=== PATIENT | male | born 1935 | race Caucasian/White ===

== ENCOUNTER 2016-10-12 11:25 | Inpatient (IN) | payer MEDICARE, OTHER ==
[2016-10-12 12:04] LABS: ABG Draw Site Left Radial; ALLEN'S TEST PASS; BEb 7.2 (+/- 2); TCO2 32.5 MMOL/L (23-27)
[2016-10-12 12:10] LABS: AUTOMATED BASOPHIL 0.3 % (0-2); AUTOMATED LYMPH 24.2 % (17-44); AUTOMATED MONOCYTE 11.7 % (3-10); AUTOMATED NEUTROPHIL 60.8 % (45-76); MPV 7.7 fL (7.4-10.4)
--- NOTE | 2016-10-12 12:11 | EDPRACDOC ---
<Gail Glover - Last Filed: 10/12/16 13:20> - General Information Information Source: Patient Mode Of Arrival: Ambulance - History of Present Illness Onset: THIS MORNING HPI: PT PRESENTS TODAY WITH GENERAL WEAKNESS AND SHOB THAT BEGAN UPON AWAKENING THIS MORNING. DENIES CP, ABD PAIN, N/V/D. STATES SOME PRODUCTIVE COUGH. NO APPARENT DISTRESS. EMS REPORTS SPO2 OF 87% UPON THEIR ARRIVAL. Shortness of Breath: Moderate Relevant History: Reports: Heart Failure (CHF) Cough: Reports: Productive, Green Ear Symptoms: Reports: None SOB Worsens with: Reports: Exertion, Coughing SOB Improves with: Reports: Rest Associated Signs and symptoms: Reports: Cough, Other (GENERAL WEAKNESS) <Frieda Stone - Last Filed: 10/12/16 13:22> - General Information Chief Complaint: Dyspnea/Resp distress Stated Complaint: RESP Time Seen by Provider: 10/12/16 11:57 Home Medications: Home Medications Amiodarone [Cordarone, Pacerone] 200 mg PO DAILY 12/26/14 Amlodipine [Norvasc] 10 mg PO DAILY 12/26/14 Finasteride [Proscar] 5 mg PO DAILY 12/26/14 Sennosides [Senokot] 8.6 mg PO DAILY 05/04/16 Ascorbic Acid [Vitamin C] 1,000 mg PO DAILY 08/15/16 Aspirin [Aspirin, Chewable] 81 mg PO DAILYWM #30 tablet 09/18/16 Probiotic Blend [Kellie Q] 1 tab PO BIDLS #20 tablet 09/18/16 Furosemide [Lasix] 40 mg PO DAILY 10/12/16 Ibuprofen [Motrin Ib] 600 mg PO .ONCE 10/12/16 Allergies/Adverse Reactions: Allergies Allergy/AdvReac Type Severity Reaction Status Date / Time Gzpbaml-Zwu-Cck Reductase Allergy Intermediate Unknown/See Verified 10/12/16 11: 58 Inhibitor Comments piperacillin sodium Allergy Hives* Verified 10/12/16 11:58 [From Zosyn] tazobactam sodium Allergy Hives* Verified 10/12/16 11:58 [From Zosyn] - Treatment Prior to ED Arrival Reported Medications/Treatment [place] Meds/Treatments Given O2 via Cannula EMS Treatment BLS IV No <Gail Glover - Last Filed: 10/12/16 13:20> - Treatment Prior to ED Arrival Reported Medications/Treatment [place] LINE Meds/Treatments Given O2 via Cannula EMS Treatment BLS IV No <Frieda Stone - Last Filed: 10/12/16 13:22> ED Past Medical History - History Reviewed Yes Nurses notes reviewed and agree except as marked - Patient Medical History Neurological History: Denies: Seizures, Dementia Cardiac History: Reports: Atrial Fibrillation (DC cardioversion x 2), Hypertension, Congestive Heart Failure, Hypercholesterolemia, Pacemaker ( Pacemaker Spring 2015 at [facility]), Syncope. Denies: Heart Attack, Cardiac Catheterization (DC cardioversion x 2) Respiratory History: Denies: Asthma, Pneumonia, Emphysema GI/ History: Reports: Urinary Tract Infection, Kidney Stones, BPH (URINARY RETENTION WITH CHRONIC INDWELLING MIDDLETON CATHETER). Denies: Pancreatitis Musculoskeletal History: Reports: Arthritis, Osteoarthritis Psychological History: Denies: Depression, Anxiety, Substance Use Disorder Systemic History: Reports: Anemia (iron deficiency). Denies: Cancer, Diabetes, Hyperthyroidism Surgical History: Reports: Cholecystectomy, Hernia Surgery (RIGHT GROIN), Tonsillectomy/Adnoidectomy, Other (hemorrhoidectomy). Denies: Cardiac Catheterization (DC cardioversion x 2) - Family Medical History Reports: Diabetes (father), Cancer (MOTHER- COLON CANCER), Cardiac Disorders (2 brothers atrial fib, CAD), Respiratory Disorders (brother- emphysema) - Social Medical History Smoking Status: Never smoker Social History: Denies: Substance Use Disorder <Frieda Stone - Last Filed: 10/12/16 13:22> EDM Review of Systems - Review of Systems ROS Negative Except as Marked: Yes All systems reviewed and were negative except as marked Constitutional: Fatigue, Weakness Eyes: No Symptoms Reported Ears: No Symptoms Reported Throat: No Symptoms Reported Nose: No Symptoms Reported Respiratory: Cough, Shortness of Breath Cardiovascular: No Symptoms Reported Gastrointestinal: No Symptoms Reported Neurological: No Symptoms Reported Musculoskeletal: No Symptoms Reported Integumentary: No Symptoms Reported <Frieda Stone - Last Filed: 10/12/16 13:22> - Physical Exam Last recorded Vital Signs: Last Vital Signs Temp 97.5 F 10/12/16 11:30 Pulse 66 10/12/16 13:08 Resp 16 10/12/16 13:08 BP 139/64 10/12/16 13:08 Pulse Ox 99 10/12/16 13:08 Oxygen Pulse Oxygen Saturation 99 O2 Device Nasal Cannula Oxygen Flow Rate 2 Fraction of Inspired Oxygen ( FIO2) <Gail Glover - Last Filed: 10/12/16 13:20> - Physical Exam Constitutional: Alert (Awake), No apparent distress Oriented to: Time, Person, Place Last recorded Vital Signs: Last Vital Signs Temp 97.5 F 10/12/16 11:30 Pulse 67 10/12/16 12:00 Resp 16 10/12/16 12:00 BP 157/65 10/12/16 12:00 Pulse Ox 98 10/12/16 12:00 Oxygen Pulse Oxygen Saturation 98 O2 Device Nasal Cannula Oxygen Flow Rate 2 Fraction of Inspired Oxygen ( FIO2) - HEENT Head: Normal Eye Exam: Normal Neck: Normal, Denies Pain, Midline - Respiratory/Cardiovascular Respiratory: Diminished, Rhonchi Cardiovascular: Systolic murmur - GI Palpation: Normal Tenderness: Non tender - Musculoskeletal Back: Normal Extremities: Pedal Edema (MILD, NON-PITTING) - Integumentary Skin: Normal Lymphatics: Normal - Neurologic Cerebellar: Normal Mood Description: Normal Thought: Coherent Perception: Normal <Frieda Stone - Last Filed: 10/12/16 13:22> ED SOB MDM - Results Result Diagrams: 10/12/16 11:55 10/12/16 11:55 Results: WBC 6.8 xk/uL (3.8-10.8) 10/12/16 11:55 RBC 3.42 xM/uL (4.70-6.10) L 10/12/16 11:55 Hgb 9.2 g/dL (14.0-18.0) L 10/12/16 11:55 Hct 29.1 % (42-52) L 10/12/16 11:55 MCV 85 fL (80-94) 10/12/16 11:55 MCH 27.0 pg (27-32) 10/12/16 11:55 MCHC 31.7 g/dl (33-36) L 10/12/16 11:55 RDW 16.2 % (11.5-14.5) H 10/12/16 11:55 Plt Count 251 xk/uL (130-400) 10/12/16 11:55 MPV 7.7 fL (7.4-10.4) 10/12/16 11:55 Neut % (Auto) 60.8 % (45-76) 10/12/16 11:55 Lymph % (Auto) 24.2 % (17-44) 10/12/16 11:55 [place] % (Auto) 11.7 % (3-10) H 10/12/16 11:55 Eos % (Auto) 3.0 % (0-5) 10/12/16 11:55 Baso % (Auto) 0.3 % (0-2) 10/12/16 11:55 Absolute Neuts (auto) 4.08 xk/uL (1.7-8.2) 10/12/16 11:55 Absolute Lymphs (auto) 1.63 xk/uL (0.65-4.75) 10/12/16 11:55 PT 11.5 SEC (9.2-11.2) H 10/12/16 11:55 INR 1.1 10/12/16 11:55 APTT 28.7 SEC (22-35) 10/12/16 11:55 Puncture Site Left radial 10/12/16 12:01 pH 7.490 pH UNITS (7.35-7.45) H 10/12/16 12:01 pCO2 41.0 mmHg (35-45) 10/12/16 12:01 pO2 50.0 mmHg (80-100) L 10/12/16 12:01 HCO3 31.2 MMOL/L (22-26) H 10/12/16 12:01 Total CO2 32.5 MMOL/L (23-27) H 10/12/16 12:01 Base Excess 7.2 (+/- 2) H 10/12/16 12:01 FiO2 % 21% 10/12/16 12:01 Specimen Drawn By Piksa 10/12/16 12:01 Sodium 144 mEq/L (137-146) 10/12/16 11:55 Potassium 3.1 mEq/L (3.5-5.1) L 10/12/16 11:55 Chloride 104 mEq/L (98-107) 10/12/16 11:55 Carbon Dioxide 29 mMOL/L (22-33) 10/12/16 11:55 Anion Gap 14 mEq/L (8-16) 10/12/16 11:55 BUN 13 MG/DL (9-20) 10/12/16 11:55 Creatinine 0.80 MG/DL (0.66-1.25) 10/12/16 11:55 Estimated GFR (MDRD) > 60 mL/min (>=60) 10/12/16 11:55 Glucose 93 MG/DL (70-99) 10/12/16 11:55 Calculated Osmolality 277 MOs/Kg (270-290) 10/12/16 11:55 Calcium 8.9 MG/DL (8.4-10.2) 10/12/16 11:55 Corrected Calcium 9.4 MG/DL (8.4-10.2) 10/12/16 11:55 Total Bilirubin 0.8 MG/DL (0.2-1.3) 10/12/16 11:55 AST 18 IU/L (17-59) 10/12/16 11:55 ALT 22 IU/L (21-72) 10/12/16 11:55 Alkaline Phosphatase 84 IU/L (50-160) 10/12/16 11:55 Troponin I < 0.01 ng/mL (<.04) 10/12/16 11:55 Dir-V-Oujhuayitix Pept 1990 pg/mL (0-1800) H 10/12/16 11:55 Total Protein 6.9 G/DL (6.3-8.2) 10/12/16 11:55 Albumin 3.5 G/DL (3.5-5.0) 10/12/16 11:55 Urine Color Pale yell0w 10/12/16 12:10 Urine Clarity Hazy 10/12/16 12:10 Urine pH 8.0 (5.0-8.0) 10/12/16 12:10 Ur Specific [place] 1.005 (1.003-1.035) 10/12/16 12:10 Urine Protein 1+ (NEG/TRACE) H 10/12/16 12:10 Urine Glucose (UA) Neg (NEGATIVE) 10/12/16 12:10 Urine Ketones Neg (NEGATIVE) 10/12/16 12:10 Urine Occult Blood 1+ (NEG/TRACE) H 10/12/16 12:10 Urine Nitrite Neg (NEGATIVE) 10/12/16 12:10 Urine Bilirubin Neg (NEGATIVE) 10/12/16 12:10 Urine Urobilinogen <2.0 MG/DL (0-1) 10/12/16 12:10 Ur Leukocyte Esterase 2+ (NEGATIVE) H 10/12/16 12:10 Urine RBC 20-30 (0-2) H 10/12/16 12:10 Urine WBC Tntc (0-2) H 10/12/16 12:10 Urine WBC Clumps Present (NONE) H 10/12/16 12:10 Ur Epithelial Cells Occ 10/12/16 12:10 Urine Bacteria 1+ (NEG/FEW) H 10/12/16 12:10 Hyaline Casts 2-5 (0-2) H 10/12/16 12:10 Urine Mucus Sm amt (NEG/OCC) 10/12/16 12:10 Urine Yeast Few (NONE) H 10/12/16 12:10 Lab Results 10/12/16 10/12/16 10/12/16 12:10 12:01 11:55 WBC RBC Hgb Hct MCV MCH MCHC RDW Plt Count MPV Neut % (Auto) Lymph % (Auto) [place] % (Auto) Eos % (Auto) Baso % (Auto) Absolute Neuts (auto) Absolute Lymphs (auto) PT 11.5 H INR 1.1 APTT 28.7 Puncture Site Left radial pH 7.490 H pCO2 41.0 pO2 50.0 L HCO3 31.2 H Total CO2 32.5 H Base Excess 7.2 H FiO2 % 21% Specimen Drawn By Piksa Sodium Potassium Chloride Carbon Dioxide Anion Gap BUN Creatinine Estimated GFR (MDRD) Glucose Calculated Osmolality Calcium Corrected Calcium Total Bilirubin AST ALT Alkaline Phosphatase Troponin I Mit-Z-Mmfnkxljyet Pept Total Protein Albumin Urine Color Pale yell0w Urine Clarity Hazy Urine pH 8.0 Ur Specific [place] 1.005 Urine Protein 1+ H Urine Glucose (UA) Neg Urine Ketones Neg Urine Occult Blood 1+ H Urine Nitrite Neg Urine Bilirubin Neg Urine Urobilinogen <2.0 Ur Leukocyte Esterase 2+ H Urine RBC 20-30 H Urine WBC Tntc H Urine WBC Clumps Present H Ur Epithelial Cells Occ Urine Bacteria 1+ H Hyaline Casts 2-5 H Urine Mucus Sm amt Urine Yeast Few H 10/12/16 10/12/16 11:55 11:55 WBC 6.8 RBC 3.42 L Hgb 9.2 L Hct 29.1 L MCV 85 MCH 27.0 MCHC 31.7 L RDW 16.2 H Plt Count 251 MPV 7.7 Neut % (Auto) 60.8 Lymph % (Auto) 24.2 [place] % (Auto) 11.7 H Eos % (Auto) 3.0 Baso % (Auto) 0.3 Absolute Neuts (auto) 4.08 Absolute Lymphs (auto) 1.63 PT INR APTT Puncture Site pH pCO2 pO2 HCO3 Total CO2 Base Excess FiO2 % Specimen Drawn By Sodium 144 Potassium 3.1 L Chloride 104 Carbon Dioxide 29 Anion Gap 14 BUN 13 Creatinine 0.80 Estimated GFR (MDRD) > 60 Glucose 93 Calculated Osmolality 277 Calcium 8.9 Corrected Calcium 9.4 Total Bilirubin 0.8 AST 18 ALT 22 Alkaline Phosphatase 84 Troponin I < 0.01 Skr-N-Aawcnjoseqs Pept 1990 H Total Protein 6.9 Albumin 3.5 Urine Color Urine Clarity Urine pH Ur Specific [place] Urine Protein Urine Glucose (UA) Urine Ketones Urine Occult Blood Urine Nitrite Urine Bilirubin Urine Urobilinogen Ur Leukocyte Esterase Urine RBC Urine WBC Urine WBC Clumps Ur Epithelial Cells Urine Bacteria Hyaline Casts Urine Mucus Urine Yeast - Diagnostic Imaging Chest Image interpreted by: Radiologist Diagnostic Imaging Comments: Large left midlung opacity is noted consistent with pneumonia. Follow-up radiographs are recommended to ensure resolution. <Gail Glover - Last Filed: 10/12/16 13:20> - Results Result Diagrams: 10/12/16 11:55 10/12/16 11:55 Results: Puncture Site Left radial 10/12/16 12:01 pH 7.490 pH UNITS (7.35-7.45) H 10/12/16 12:01 pCO2 41.0 mmHg (35-45) 10/12/16 12:01 pO2 50.0 mmHg (80-100) L 10/12/16 12:01 HCO3 31.2 MMOL/L (22-26) H 10/12/16 12:01 Total CO2 32.5 MMOL/L (23-27) H 10/12/16 12:01 Base Excess 7.2 (+/- 2) H 10/12/16 12:01 FiO2 % 21% 10/12/16 12:01 Specimen Drawn By Piksa 10/12/16 12:01 Lab Results 10/12/16 12:01 Puncture Site Left radial pH 7.490 H pCO2 41.0 pO2 50.0 L HCO3 31.2 H Total CO2 32.5 H Base Excess 7.2 H FiO2 % 21% Specimen Drawn By Piksa - EKG EKG #1 EKG Time: 11:39 -: Yes EKG interpreted by me Rate: bpm: 68 Rhythm: Paced <Frieda Stone - Last Filed: 10/12/16 13:22> - Departure Yes I personally saw and evaluated the patient. Disposition: Admit IP To This Hospital Education/Counseling Given To: Patient, Family Member Education/Counseling Given Regarding: Diagnosis, Treatment Decision to Admit Time: 13:21 Decision to admit date: 10/12/16 Decision to admit: from ED - Physician Consulted Hospitalist Provider Called: Wagner Quiñones <Gail Glover - Last Filed: 10/12/16 13:20> - Departure Disposition: Admit IP To This Hospital <Frieda Stone - Last Filed: 10/12/16 13:22> - Departure Condition: Serious Final Diagnosis: Acute respiratory failure with hypoxia, LARGE LEFT MIDLUNG PNEUMONIA, UTI ( urinary tract infection), Chronic indwelling [place] catheter Instructions: Urinary Tract Infection in Men (ED), Dysuria Referrals: Earl Fitch II, MD [Primary Care Provider] - One Week
[2016-10-12 12:24] LABS: PARTIAL THROMB. TIME 28.7 SEC (22-35); PT-INR 1.1
[2016-10-12 12:28] LABS: LEUKOCYTES/URINE 2+ (NEGATIVE); NITRITE/URINE NEG (NEGATIVE); RBC/URINE 20-30 (0-2); URINE OCCULT BLOOD 1+ (NEG/TRACE); WBC/URINE TNTC (0-2)
[2016-10-12 12:29] LABS: BLOOD UREA NITROGEN 13 MG/DL (9-20); CALC CORRECTED 9.4 MG/DL (8.4-10.2); CALCIUM 8.9 MG/DL (8.4-10.2); CALCULATED OSMOLALITY 277 MOs/Kg (270-290); CHLORIDE 104 mEq/L (98-107); GLUCOSE 93 MG/DL (70-99); SODIUM LEVEL 144 mEq/L (137-146); TOTAL PROTEIN 6.9 G/DL (6.3-8.2)
[2016-10-12] MEDS ORDERED: Levofloxacin 750 mg/150 ml D5W 750 MG/150 ML RTU IV ONE (13:02)
--- NOTE | 2016-10-12 13:16 | DIRPT ---
CLINICAL DATA: Shortness of breath. EXAM: PORTABLE CHEST 1 VIEW COMPARISON: September 15, 2016. FINDINGS: Stable cardiomediastinal silhouette. Hypoinflation of the lungs is again noted with elevated right hemidiaphragm. Left-sided pacemaker is unchanged in position. Large airspace opacity is noted in the left midlung consistent with pneumonia. Right lung is clear. Bony thorax is unremarkable. IMPRESSION: Large left midlung opacity is noted consistent with pneumonia. Follow-up radiographs are recommended to ensure resolution. Electronically Signed By: Uriah Connelly Jr, M.D. On: 10/12/2016 13:13
[2016-10-12] MEDS ORDERED: NS 1,000 ML IV ONE (13:18)
--- NOTE | 2016-10-12 14:01 | HISTPHYS ---
- Chief Complaint Shortness of breath and weakness - History of Present Illness PT PRESENTS TODAY WITH GENERAL WEAKNESS AND SHOB THAT BEGAN UPON AWAKENING THIS MORNING. DENIES CP, ABD PAIN, N/V/D. STATES SOME PRODUCTIVE COUGH. NO APPARENT DISTRESS. EMS REPORTS SPO2 OF 87% UPON THEIR ARRIVAL. Shortness of Breath: Moderate Relevant History: Reports: Heart Failure (CHF) Cough: Reports: Productive, Green Ear Symptoms: Reports: None SOB Worsens with: Reports: Exertion, Coughing SOB Improves with: Reports: Rest Associated Signs and symptoms: Reports: Cough, Other (GENERAL WEAKNESS) - Medical History Cardiac History: Reports: Atrial Fibrillation (DC cardioversion x 2), Hypertension, Congestive Heart Failure, Hypercholesterolemia, Pacemaker ( Pacemaker Spring 2015 at [facility]), Syncope. Denies: Heart Attack, Cardiac Catheterization (DC cardioversion x 2) Respiratory History: Denies: Asthma, Pneumonia, Emphysema GI/ History: Reports: Urinary Tract Infection, Kidney Stones, BPH (URINARY RETENTION WITH CHRONIC INDWELLING MIDDLETON CATHETER). Denies: Pancreatitis Musculoskeletal History: Reports: Arthritis, Osteoarthritis Systemic History: Reports: Anemia (iron deficiency). Denies: Cancer, Diabetes, Hyperthyroidism Neurological History: Denies: Seizures, Dementia Psychological History: Denies: Depression, Anxiety, Substance Use Disorder - Surgical History Reports: Cholecystectomy, Hernia Surgery (RIGHT GROIN), Tonsillectomy/ Adnoidectomy, Other (hemorrhoidectomy). Denies: Cardiac Catheterization (DC cardioversion x 2) - Medictions/Allergies Allergies Zpdjgpz-Yxw-Fzv Reductase Inhibitor Allergy (Intermediate, Verified 10/12/16 11: 58) Unknown/See Comments LEGS HURT piperacillin sodium [From Zosyn] Allergy (Verified 10/12/16 11:58) Hives* tazobactam sodium [From Zosyn] Allergy (Verified 10/12/16 11:58) Hives* Home Medications Amiodarone [Cordarone, Pacerone] 200 mg PO DAILY 12/26/14 Amlodipine [Norvasc] 10 mg PO DAILY 12/26/14 Finasteride [Proscar] 5 mg PO DAILY 12/26/14 Sennosides [Senokot] 8.6 mg PO DAILY 05/04/16 Ascorbic Acid [Vitamin C] 1,000 mg PO DAILY 08/15/16 Aspirin [Aspirin, Chewable] 81 mg PO DAILYWM #30 tablet 09/18/16 Probiotic Blend [Kellie Q] 1 tab PO BIDLS #20 tablet 09/18/16 Furosemide [Lasix] 40 mg PO DAILY 10/12/16 Ibuprofen [Motrin Ib] 600 mg PO .ONCE 10/12/16 - Family History Reports: Diabetes (father), Cancer (MOTHER- COLON CANCER), Cardiac Disorders (2 brothers atrial fib, CAD), Respiratory Disorders (brother- emphysema) - Social History Smoking Status: Never smoker Social History: Denies: Alcohol Use, Substance Use Disorder - Review of Systems Constitutional: Fatigue, Weakness - Eyes No Symptoms Reported (No blurry vision, visual changes, eye pain, or eye redness.) - Ears No Symptoms Reported (No ear pain or discharge) - Nose No Symptoms Reported (No nasal discharge/congestion or bleeding) - Mouth Mouth: No Symptoms Reported (No oropharyngeal lesions or erythema) - Throat/Neck No Symptoms Reported (No throat pain or swelling.No oropharyngeal lesions or erythema.) - Respiratory No Symptoms Reported (No cough, wheezing, or shortness of breath.) - Cardiovascular No Symptoms Reported (No chest pain or palpitations.) - Neurological No Symptoms Reported (No headache, dizziness, seizures, or focal weakness.) - Integumentary No Symptoms Reported (no rashes or lesions) - Allergic/Immunologic No Symptoms Reported (no rashes or lesions) - Hematologic No Symptoms Reported (No chronic anemia, bleeding, or easy bruising.) - Endocrine No Symptoms Reported (No thyroid issues, polyuria, or polydipsia.) - Psychiatric No Symptoms Reported (Fully oriented, with normal and appropriate affect.) - Physical Exam Constitutional: Alert (Awake), No apparent distress Oriented to: Time, Person, Place Exam: Last Vital Signs Temp 97.5 F 10/12/16 11:30 Pulse 66 10/12/16 13:08 Resp 16 10/12/16 13:08 BP 139/64 10/12/16 13:08 Pulse Ox 99 10/12/16 13:08 Intake & Output 10/11/16 10/12/16 10/12/16 23:59 07:59 15:59 Patient's weight 162 lb - HEENT Head: Normal Eye: Normal Oropharynx: Normal (Pharynx: Moist without exudate,Gums-no swelling, No oropharyngeal lesions or erythema, Mucous membranes are dry.) Tympanic Membrane: Normal (No discharge) ENT EAC: Normal (No oropharyngeal lesions or erythema. Mucous membranes are dry. ) TMJ: Normal Nose: No Symptoms Reported - Respiratory/Cardiovascular Respiratory: Diminished, Rhonchi Cardiovascular: Normal (RRR , Normal S1, S2. No murmurs, rubs, or gallops. PMI non-displaced. Carotids: no carotid bruits. No bradycardia or tachycardia. DP pulses 2+ bilaterally.) - GI Auscultation: Normal (NABS) Palpation: Normal Tenderness: Non tender Bliss's Sign: Negative - Musculoskeletal Back: Normal Extremities: Pedal Edema (MILD, NON-PITTING) - Integumentary Skin: Normal Lymphatics: Normal - Neurologic Memory Impaired: Normal Motor Function: Normal (Motor 5/5 throughout. Normal tone, Pulses 2+ No cyanosis or edema, FROM) Cranial Nerve: Normal (CN II-XXII intact sensation, strength 5/5) Cerebellar: Normal Mood Description: Normal Thought: Coherent Perception: Normal - Focused CV Perfusion Exam Vital Signs: Last Vital Signs Temp 97.5 F 10/12/16 11:30 Pulse 66 10/12/16 13:08 Resp 16 10/12/16 13:08 BP 139/64 10/12/16 13:08 Pulse Ox 99 10/12/16 13:08 - Lab Results 10/12/16 11:55 10/12/16 11:55 Laboratory Tests 10/12/16 11:55 Troponin I < 0.01 Kqh-T-Bvrfjnjkdjg Pept 1990 H Laboratory Tests 10/12/16 12:10 Urine Nitrite Neg Ur Leukocyte Esterase 2+ H Urine RBC 20-30 H Urine WBC Tntc H Urine WBC Clumps Present H Laboratory Tests 09/15/16 09/16/16 10/12/16 21:25 04:35 11:55 RBC 3.81 L Hgb 9.1 L D 9.2 L Laboratory Tests 02/25/14 05/04/16 10/12/16 20:35 18:00 12:01 pH 7.430 7.440 7.490 H pCO2 40.0 35.0 41.0 pO2 69.0 L 50.0 L 50.0 L HCO3 26.5 H 23.8 31.2 H Total CO2 27.7 H 24.9 32.5 H Base Excess 2.0 0.1 7.2 H FiO2 % 21% Laboratory Tests 09/15/16 09/16/16 10/12/16 21:25 04:35 11:55 Potassium 5.3 H 4.7 3.1 L Creatinine 2.20 H 1.90 H 0.80 PORTABLE CHEST 1 VIEW COMPARISON: September 15, 2016. FINDINGS: Stable cardiomediastinal silhouette. Hypoinflation of the lungs is again noted with elevated right hemidiaphragm. Left-sided pacemaker is unchanged in position. Large airspace opacity is noted in the left midlung consistent with pneumonia. Right lung is clear. Bony thorax is unremarkable. IMPRESSION: Large left midlung opacity is noted consistent with pneumonia. Follow-up radiographs are recommended to ensure resolution. - Assessment (1) Acute respiratory failure with hypoxia J96.01 - ACUTE RESPIRATORY FAILURE WITH HYPOXIA Acute (2) Left upper lobe pneumonia J18.1 - LOBAR PNEUMONIA, UNSPECIFIED ORGANISM Acute (3) Hypokalemia E87.6 - HYPOKALEMIA Acute (4) PAF (paroxysmal atrial fibrillation) I48.0 - PAROXYSMAL ATRIAL FIBRILLATION Chronic Present on Admission: No (5) HTN (hypertension) I10 - ESSENTIAL (PRIMARY) HYPERTENSION Acute Qualifiers: Hypertension type: essential hypertension Qualified Code(s): I10 - Essential (primary) hypertension
[2016-10-12] MEDS ORDERED: PROMETHAZINE 25 MG/ML VIAL IV PRN (14:20)
[2016-10-12] MEDS ORDERED: TUSSIONEX 5 ML ORAL SYRINGE PO PRN (14:20)
[2016-10-12] MEDS ORDERED: BISACODYL 10 MG SUPP PR PRN (14:20)
[2016-10-12] MEDS ORDERED: ONDANSETRON HCL 4 MG/2 ML VIAL IV PRN (14:20)
[2016-10-12] MEDS ORDERED: GUAIFEN 100 MG-DEXTROMETH 10 MG PER 5 ML PO PRN (14:20)
[2016-10-12] MEDS ORDERED: MAGNESIUM HYDROXIDE 30 ML BOTTLE PO PRN (14:20)
[2016-10-12] MEDS ORDERED: ACETAMINOPHEN 650 MG SUPP PR PRN (14:20)
[2016-10-12] MEDS ORDERED: Aluminum;Magnesium;Simethicone 30 ML UDC PO PRN (14:20)
[2016-10-12] MEDS ORDERED: SODIUM CHLORIDE 0.9% 3 ML FLUSH FLUSH PRN (14:22)
[2016-10-12] MEDS ORDERED: Vaccine Screening Complete SCH (16:00)
[2016-10-12] MEDS: IMIPENEM CILASTATIN 500 MG in D5W 100 ML IV SCH (17:14)
[2016-10-12] MEDS: NS/KCl 20 mEq 1,000 ML IV SCH (17:14)
[2016-10-12] MEDS: ENOXAPARIN 40 MG/0.4 ML PFS SQ SCH (18:02)
[2016-10-12] MEDS: SODIUM CHLORIDE 0.9% 3 ML FLUSH FLUSH SCH (18:02)
[2016-10-12] MEDS: PROBIOTIC BLEND TAB PO SCH (18:02)
[2016-10-12] MEDS: TEMAZEPAM 15 MG CAP PO PRN (23:02)
[2016-10-13] MEDS: IMIPENEM CILASTATIN 500 MG in D5W 100 ML IV SCH ×2 (01:09→08:31)
[2016-10-13] MEDS: SODIUM CHLORIDE 0.9% 3 ML FLUSH FLUSH SCH ×2 (01:41→18:17)
[2016-10-13 03:24] LABS: MPV 8.7 fL (7.4-10.4)
[2016-10-13 03:36] LABS: BLOOD UREA NITROGEN 11 MG/DL (9-20); CALCIUM 8.4 MG/DL (8.4-10.2); CALCULATED OSMOLALITY 271 MOs/Kg (270-290); CHLORIDE 103 mEq/L (98-107); GLUCOSE 84 MG/DL (70-99); SODIUM LEVEL 142 mEq/L (137-146)
[2016-10-13 04:59] VITALS: BMI 22.4
[2016-10-13] MEDS: NS/KCl 20 mEq 1,000 ML IV SCH ×2 (05:02→15:41)
[2016-10-13] MEDS: POTASSIUM CHLORIDE 20 MEQ TAB PO SCH ×4 (05:06→11:48)
[2016-10-13] MEDS: ALBUTEROL 0.083% 3 ML NEB NEB PRN ×2 (05:10→21:19)
[2016-10-13] MEDS ORDERED: Magnesium Sulfate 2 gm/D5W 2 GM/50 ML RTU IV ONE (06:00)
[2016-10-13] MEDS: ASPIRIN (CHEWABLE) 81 MG TAB PO SCH (08:32)
[2016-10-13] MEDS: SENNA CONCENTRATE TAB PO SCH (08:33)
[2016-10-13] MEDS: AMLODIPINE 10 MG TAB PO SCH (08:33)
[2016-10-13] MEDS: FINASTERIDE 5 MG TAB PO SCH (08:33)
[2016-10-13] MEDS: AMIODARONE 200 MG TAB PO SCH (08:33)
[2016-10-13] MEDS: FUROSEMIDE 40 MG TAB PO SCH (08:33)
[2016-10-13] MEDS ORDERED: Non-Formulary Medication ITEM (Ascorbic Acid [Vitamin C] 1,000 MG) PO SCH (09:00)
[2016-10-13] MEDS ORDERED: POTASSIUM CHLORIDE 20 MEQ TAB PO ONE (09:54)
[2016-10-13] MEDS: KCl 10 mEq/100 ml Premix (Run) 10 MEQ/100 ML RTU IV SCH (11:48)
[2016-10-13] MEDS: ASCORBIC ACID 500 MG TAB PO SCH (11:49)
[2016-10-13] MEDS: PROBIOTIC BLEND TAB PO SCH ×2 (11:49→18:08)
[2016-10-13] MEDS ORDERED: LIDOCAINE 1% 5 ML (METHYLPARABEN FREE) ONE (12:39)
--- NOTE | 2016-10-13 13:48 | HIMOPRPT ---
DATE OF PROCEDURE: 10/13/16 PREOPERATIVE DIAGNOSES: Sepsis, and poor venous access. POSTPROCEDURE DIAGNOSES: Sepsis, and poor venous access. PROCEDURE: Placement of right internal jugular vein, triple-lumen catheter with ultrasound guidance. SURGEON: Shen Feldman MD. MANAGER FINANCIAL SYSTEMS: None. ANESTHESIA: 1% lidocaine. ESTIMATED BLOOD LOSS: Minimal. COMPLICATIONS: None noted. INDICATIONS: JAMIE LARSON is a 81-year-old M patient, who had become hypotensive, was in need of emergent IV access. We have been asked to obtain this. Consent had been obtained. We did this at the bedside. The risks and benefits including the risk of infection, bleeding, anesthesia, as well as the unforeseen complications, and risk of pneumothorax and hemothorax have been explained. The patient understood and agreed. PROCEDURE IN DETAIL: The patient was identified as such after appropriate time- out, and sterile prep and drape, the right neck was anesthetized with 1% lidocaine and then under ultrasound guidance, a large bore needle was placed in internal jugular vein. Good blood return was obtained. Guidewire was placed. Needle was removed. Over the guidewire, dilator and triple-lumen catheter placed without any problems. This sutured in position. All ports were flushed and withdrawn. Dry sterile dressing was applied. The patient tolerated this without any difficulties.
--- NOTE | 2016-10-13 13:51 | PCM.SURGCO ---
Consultation Date: 10/13/16 Requesting Physician: David Catherine Multimedia Educational Specialist: Shen Feldman Consult Reason: Poor Venous Access - History of Present Illness The patient is a very unfortunate 81-year-old with shortness of breath and pneumonia. He had hypokalemia and needed IV access for potassium supplementation and IV antibiotics as his IV access was very poor. We have been asked to obtain this. Chief Complaint: Shortness of breath and weakness - Past Medical and Surgical History Cardiac History: Reports: Atrial Fibrillation, Hypertension, Congestive Heart Failure, Heart Attack, Cardiac Catheterization, Pacemaker Respiratory History: Denies: Asthma, COPD GI/ History: Reports: Urinary Tract Infection, Kidney Stones, BPH Systemic History: Reports: Anemia. Denies: Diabetes Musculoskeletal History: Reports: Arthritis, Osteoarthritis Psychological History: Reports: No Significant History. Denies: Depression, Anxiety, Substance Use Disorder Neurological History: Reports: No Significant History. Denies: Cerebrovascular Accident, Seizures Past Surgical History: Reports: Cholecystectomy, Cardiac Catheterization, Hernia Surgery, Tonsillectomy/Adnoidectomy Allergies Zmsxila-Pre-Vqv Reductase Inhibitor Allergy (Intermediate, Verified 10/12/16 15: 48) Unknown/See Comments LEGS HURT piperacillin sodium [From Zosyn] Allergy (Verified 10/12/16 15:48) Hives* tazobactam sodium [From Zosyn] Allergy (Verified 10/12/16 15:48) Hives* Home Medications Amiodarone [Cordarone, Pacerone] 200 mg PO DAILY 12/26/14 Amlodipine [Norvasc] 10 mg PO DAILY 12/26/14 Finasteride [Proscar] 5 mg PO DAILY 12/26/14 Sennosides [Senokot] 8.6 mg PO DAILY 05/04/16 Ascorbic Acid [Vitamin C] 1,000 mg PO DAILY 08/15/16 Aspirin [Aspirin, Chewable] 81 mg PO DAILYWM #30 tablet 09/18/16 Probiotic Blend [Kellie Q] 1 tab PO BIDLS #20 tablet 09/18/16 Furosemide [Lasix] 40 mg PO DAILY 10/12/16 Ibuprofen [Motrin Ib] 600 mg PO .ONCE 10/12/16 - Social History Travel Outside of [place] in the Last 3 Months?: No Smoking Status: Never smoker Social History: Denies: Alcohol Use, Substance Use Disorder - Family History Reports: Diabetes (father), Cancer (MOTHER- COLON CANCER), Cardiac Disorders (2 brothers atrial fib, CAD) - Review of Systems Constitutional: Fatigue, Weakness. negative: Chills, Fever Eyes: No Symptoms Reported. negative: Blurred Vision, Double Vision Ears: No Symptoms Reported. negative: Drainage, Hearing Loss Nose: No Symptoms Reported. negative: Abrasion, Bleeding Mouth: No Symptoms Reported. negative: Pain, Dry Mouth Throat/Neck: No Symptoms Reported. negative: Pain, Hoarseness Respiratory: Shortness of Breath Cardiovascular: negative: Chest Pain Gastrointestinal: negative: Nausea, Vomiting, Abdominal Pain Genitourinary: Frequency, Urgency to urinate Neurological: No Symptoms Reported. negative: Dizziness, Seizure Musculoskeletal:: Osteoarthritis Integumentary: Bruising. negative: Rash Allergic/Immunologic: No Symptoms Reported. negative: Hives, Itching Hematologic: Easy Bruising. negative: Lymphadenopathy Endocrine: negative: Diabetes Psychiatric: No Symptoms Reported. negative: Anxiety, Depression - Physical Exam Vital Signs: Initial Vitals Temperature 97.5 F 10/12/16 11:30 Pulse Rate 70 10/12/16 11:30 Respiratory Rate 16 10/12/16 11:30 Blood Pressure 145/67 10/12/16 11:30 Pulse Oxygen Saturation 90 L 10/12/16 11:30 Constitutional: No apparent distress, Alert Oriented to: Time, Person, Place - HEENT Head: Normal. negative: Laceration, Tender Eye: Normal. negative: Edema, Scleral Icterus Oropharynx: Normal. negative: Membranes Dry, Red ENT EAC: Normal. negative: Blood TMJ: Normal. negative: Crepitance, Tender Nose: No Symptoms Reported. negative: Abrasion, Bleeding Respiratory: Diminished, Rhonchi Cardiovascular: Irregular. negative: Bradycardia, Tachycardia - GI Auscultation: Normal. negative: Bruit Palpation: Normal. negative: Enlarged liver, Enlarged spleen Tenderness: Non tender Bliss's Sign: Negative Rectal Exam: Deferred - Exam Deferred: Yes - Musculoskeletal Back: Normal. negative: Abrasion, CVA Tenderness Extremities: negative: Calf Tenderness, Clubbing, Cyanosis Spine: non-tender, full range of motion, normal alignment - Integumentary Skin: Normal. negative: Clammy, Diaphoretic Lymphatics: Normal. negative: Adenopathy, Tender - Neurologic Memory Impaired: Normal Motor Function: Abnormal (Significant weakness but no focal deficit.) Cranial Nerve: Normal Mood Description: Normal, Appropriate Thought: negative: Coherent, Delusions Perception: Normal - Lab Results 10/13/16 02:50 10/13/16 02:50 - Assessment/Plan (1) Poor venous access I87.8 - OTHER SPECIFIED DISORDERS OF VEINS Acute Comment: Will place central line. I have explained this to him in detail and he understands and agrees. (2) Pneumonia J18.9 - PNEUMONIA, UNSPECIFIED ORGANISM Acute Comment: Being treated with antibiotics. (3) Sepsis A41.9 - SEPSIS, UNSPECIFIED ORGANISM Resolved Comment: On antibiotics.
[2016-10-13] MEDS: ENOXAPARIN 40 MG/0.4 ML PFS SQ SCH (18:05)
[2016-10-13] MEDS: CEFEPIME HYDROCHLORIDE 2 GM in D5W 100 ML IV SCH (18:16)
[2016-10-13] MEDS ORDERED: HYDROCORTISONE 2.5% CREAM TOP PRN (18:31)
--- NOTE | 2016-10-13 20:38 | GENMEDPROG ---
Notes Reviewed: Yes Events from last night noted and discussed with Clinical Staff Current Medication List: Reviewed Currently: Reports: Cough, ASHER DVT Prophylaxis: Yes - Physical Examination Vital Signs and I&O: Last Vital Signs Temp 97.9 F 10/13/16 19:51 Pulse 64 10/13/16 19:51 Resp 18 10/13/16 19:51 BP 104/48 L 10/13/16 19:51 Pulse Ox 95 10/13/16 19:51 Oxygen Pulse Oxygen Saturation 95 O2 Device Nasal Cannula Oxygen Flow Rate 3 Fraction of Inspired Oxygen ( FIO2) Intake & Output 10/10/16 10/11/16 10/12/16 10/13/16 23:59 23:59 23:59 23:59 Intake Total 2089 2246 Output Total 100 2100 Balance 1988 146 Patient's weight 164 lb 169 lb General: Alert, Oriented x3, No acute distress, Well appearing, Well nourished HEENT: Normal (Normocephalic, atraumatic;EOMI.Sclera white, Nares patent, without discharge or bleeding. No oropharyngeal lesions or erythema. Mucous membranes are dry.) Neck: Non-tender, Full range of motion, Normal Trachea alignment, Normal inspection (No cervical lymphadenopathy. No supraclavicular lymphadenopathy.), No Masses palpable, Supple Lymphatics: Normal Respiratory: Diminished, Rhonchi Cardiovascular: Regular rate and rhythm (No bradycardia or tachycardia), Normal S1, No Gallops,Rubs/Murmurs, Normal S2, Good Pedal Pulses (DP pulses 2+ bilaterally) GI: Normal bowel sounds (normal active sounds), Soft (non-distended), Non tender , No hepatospenomegaly, No masses Extremities/Musculoskeletal: Normal pulses (DP pulses 2+ bilaterally) Skin: Warm,Dry and Intact, No rashes, No significant lesion Neurological: Strength at 5/5 X4 ext (Motor 5/5 throughout.), Normal tone, Cranial nerves 3-12 NL ( 2-12 grossly intact.) Psych/Mental Status: Appropriate, Normal Affect Lab/DI/Studies Reviewed: Laboratory Results - last 24 hr 10/13/16 10/13/16 10/13/16 02:50 02:50 03:57 WBC 6.1 RBC 3.06 L Hgb 8.3 L Hct 26.0 L MCV 85 MCH 27.3 MCHC 32.1 L RDW 16.0 H Plt Count 212 MPV 8.7 Sodium 142 Potassium 2.8 L Chloride 103 Carbon Dioxide 31 Anion Gap 11 BUN 11 Creatinine 0.70 Estimated GFR (MDRD) > 60 Glucose 84 Calculated Osmolality 271 Calcium 8.4 Magnesium 1.90 10/13/16 10/13/16 10:07 15:40 WBC RBC Hgb Hct MCV MCH MCHC RDW Plt Count MPV Sodium Potassium 4.7 D Chloride Carbon Dioxide Anion Gap BUN Creatinine Estimated GFR (MDRD) Glucose Calculated Osmolality Calcium Magnesium 2.20 - Assessment (1) Acute respiratory failure with hypoxia Acute J96.01 - ACUTE RESPIRATORY FAILURE WITH HYPOXIA (2) Left upper lobe pneumonia Acute J18.1 - LOBAR PNEUMONIA, UNSPECIFIED ORGANISM (3) Hypokalemia Acute E87.6 - HYPOKALEMIA (4) PAF (paroxysmal atrial fibrillation) Chronic I48.0 - PAROXYSMAL ATRIAL FIBRILLATION (5) HTN (hypertension) Acute I10 - ESSENTIAL (PRIMARY) HYPERTENSION Qualifiers: Hypertension type: essential hypertension Qualified Code(s): I10 - Essential (primary) hypertension
[2016-10-14] MEDS: CEFEPIME HYDROCHLORIDE 2 GM in D5W 100 ML IV SCH ×2 (03:45→14:55)
[2016-10-14] MEDS: NS/KCl 20 mEq 1,000 ML IV SCH ×2 (05:19→08:27)
[2016-10-14] MEDS: SODIUM CHLORIDE 0.9% 3 ML FLUSH FLUSH SCH ×2 (05:19→18:43)
[2016-10-14 08:12] LABS: MPV 8.6 fL (7.4-10.4)
--- NOTE | 2016-10-14 08:12 | DIRPT ---
CLINICAL DATA: 81-year-old male with difficulty breathing. Subsequent encounter. EXAM: PORTABLE CHEST 1 VIEW COMPARISON: 10/12/2016. FINDINGS: Portable exam with poor inspiration. Sequential pacemaker enters from the left with leads unchanged in position. Heart size within normal limits. Placement of right central line with the tip projecting at the level of the proximal superior vena cava. No gross pneumothorax. Left perihilar/ lower lobe consolidation similar to prior exam and may represent infectious infiltrate. Mild progression of consolidation right infrahilar region may represent infiltrate and/ or atelectasis. Follow-up and clearance recommended. Small right-sided pleural effusion may be present. Pulmonary vascular congestion most notable centrally. IMPRESSION: Since the prior examination, right central line has been placed with the tip projected at the level the proximal superior vena cava without evidence gross pneumothorax. Asymmetric airspace disease left greater than right. When compared to prior examination, the right infrahilar consolidation has progressed. This may represent presence of infectious infiltrates superimposed upon pulmonary vascular congestion. Electronically Signed By: Tyrone Li M.D. On: 10/14/2016 08:10
[2016-10-14 08:13] LABS: BLOOD UREA NITROGEN 11 MG/DL (9-20); CALCIUM 8.8 MG/DL (8.4-10.2); CALCULATED OSMOLALITY 272 MOs/Kg (270-290); CHLORIDE 108 mEq/L (98-107); GLUCOSE 95 MG/DL (70-99); SODIUM LEVEL 142 mEq/L (137-146)
[2016-10-14] MEDS: ALBUTEROL 0.083% 3 ML NEB NEB PRN (09:14)
[2016-10-14] MEDS: AMIODARONE 200 MG TAB PO SCH (10:43)
[2016-10-14] MEDS: PROBIOTIC BLEND TAB PO SCH ×2 (10:43→18:38)
[2016-10-14] MEDS: FUROSEMIDE 40 MG TAB PO SCH (10:44)
[2016-10-14] MEDS: AMLODIPINE 10 MG TAB PO SCH (10:44)
[2016-10-14] MEDS: SENNA CONCENTRATE TAB PO SCH (10:44)
[2016-10-14] MEDS: FINASTERIDE 5 MG TAB PO SCH (10:44)
[2016-10-14] MEDS: ASCORBIC ACID 500 MG TAB PO SCH (10:44)
[2016-10-14] MEDS: ASPIRIN (CHEWABLE) 81 MG TAB PO SCH (10:44)
--- NOTE | 2016-10-14 12:04 | GENMEDPROG ---
Chief Complaint: Pneumonia Subjective Note: Patient resting comfortably in bed, says that he feels quite weak. Still on 4 L nasal cannula oxygen. Denies any chest pain, or nausea. Notes Reviewed: Yes Events from last night noted and discussed with Clinical Staff Current Medication List: Reviewed Currently: Reports: Cough, ASHER DVT Prophylaxis: Yes - Physical Examination Vital Signs and I&O: Last Vital Signs Temp 99.7 F 10/14/16 11:07 Pulse 72 10/14/16 11:07 Resp 18 10/14/16 11:07 BP 107/50 L 10/14/16 11:07 Pulse Ox 91 10/14/16 11:07 Oxygen Pulse Oxygen Saturation 91 O2 Device Nasal Cannula Oxygen Flow Rate 4 Fraction of Inspired Oxygen ( FIO2) Intake & Output 10/12/16 10/13/16 10/14/16 10/15/16 06:59 06:59 06:59 06:59 Intake Total 3090 2554 120 Output Total 800 1850 600 Balance 2290 704 -480 Patient's weight 72.756 kg 76.685 kg General: Alert, Oriented x3, No acute distress, Well appearing, Well nourished HEENT: Normal (Normocephalic, atraumatic;EOMI.Sclera white, Nares patent, without discharge or bleeding. No oropharyngeal lesions or erythema. Mucous membranes are dry.) Neck: Non-tender, Full range of motion, Normal Trachea alignment, Normal inspection (No cervical lymphadenopathy. No supraclavicular lymphadenopathy.), No Masses palpable, Supple Lymphatics: Normal Respiratory: Diminished, Rhonchi Cardiovascular: Regular rate and rhythm (No bradycardia or tachycardia), Normal S1, No Gallops,Rubs/Murmurs, Normal S2, Good Pedal Pulses (DP pulses 2+ bilaterally) GI: Normal bowel sounds (normal active sounds), Soft (non-distended), Non tender , No hepatospenomegaly, No masses Extremities/Musculoskeletal: Normal pulses (DP pulses 2+ bilaterally) Skin: Warm,Dry and Intact, No rashes, No significant lesion Neurological: Strength at 5/5 X4 ext (Motor 5/5 throughout.), Normal tone, Cranial nerves 3-12 NL ( 2-12 grossly intact.) Psych/Mental Status: Appropriate, Normal Affect Lab/DI/Studies Reviewed: Laboratory Tests 12/10/14/16 10/14/16 15:40 06:24 06:24 WBC 7.4 Hgb 8.4 L Hct 26.5 L Potassium 4.7 D 5.3 H Creatinine 0.70 - Assessment (1) Left upper lobe pneumonia Acute J18.1 - LOBAR PNEUMONIA, UNSPECIFIED ORGANISM Comment/Plan: Continue supplemental oxygen and empiric IV antibiotics. Wean oxygen as able. (2) Acute respiratory failure with hypoxia Acute J96.01 - ACUTE RESPIRATORY FAILURE WITH HYPOXIA Comment/Plan: Due to pneumonia, treated as below. (3) Chronic indwelling Brown catheter Acute Z92.89 - PERSONAL HISTORY OF OTHER MEDICAL TREATMENT (4) HTN (hypertension) Acute I10 - ESSENTIAL (PRIMARY) HYPERTENSION Qualifiers: Hypertension type: essential hypertension Qualified Code(s): I10 - Essential (primary) hypertension Comment/Plan: Continue home medications. (5) Hypokalemia Acute E87.6 - HYPOKALEMIA Comment/Plan: Potassium was slightly over repleted yesterday. Discontinue all potassium, recheck renal function and potassium in the morning.
--- NOTE | 2016-10-14 14:50 | DIRPT ---
CLINICAL DATA: Patient with left upper extremity swelling. EXAM: LEFT UPPER EXTREMITY VENOUS DOPPLER ULTRASOUND TECHNIQUE: Abdul-scale sonography with graded compression, as well as color Doppler and duplex ultrasound were performed to evaluate the upper extremity deep venous system from the level of the subclavian vein and including the jugular, axillary, basilic, radial, ulnar and upper cephalic vein. Spectral Doppler was utilized to evaluate flow at rest and with distal augmentation maneuvers. COMPARISON: None. FINDINGS: No definite evidence for thrombus demonstrated within the left internal jugular, subclavian, axillary and brachial veins. The basilic vein is unremarkable without evidence for thrombus. The left cephalic vein is not able to be visualized or assessed due to patient inability to cooperate with the examination. The contralateral right subclavian vein is patent. IMPRESSION: No evidence for DVT within the left jugular, subclavian, axillary and brachial veins. The left cephalic vein is not able to be assessed due to patient's inability to cooperate with the exam. Electronically Signed By: Feroz Lake M.D. On: 10/14/2016 14:47
[2016-10-14] MEDS ORDERED: SODIUM CHLORIDE 0.9% 5 ML FLUSH FLUSH PRN (17:17)
[2016-10-14] MEDS: ENOXAPARIN 40 MG/0.4 ML PFS SQ SCH (18:46)
[2016-10-14] MEDS: SODIUM CHLORIDE 0.9% 5 ML FLUSH FLUSH SCH (19:53)
[2016-10-14] MEDS: ACETAMINOPHEN 325 MG/TAB TABLET PO PRN (23:39)
[2016-10-15] MEDS: CEFEPIME HYDROCHLORIDE 2 GM in D5W 100 ML IV SCH ×2 (03:17→15:25)
[2016-10-15] MEDS ORDERED: NS 250 ML IV ONE (05:43)
[2016-10-15] MEDS: SODIUM CHLORIDE 0.9% 3 ML FLUSH FLUSH SCH ×3 (05:46→17:53)
[2016-10-15] MEDS: SODIUM CHLORIDE 0.9% 5 ML FLUSH FLUSH SCH ×2 (05:47→17:53)
[2016-10-15 07:22] LABS: MPV 8.3 fL (7.4-10.4)
[2016-10-15 07:42] LABS: BLOOD UREA NITROGEN 12 MG/DL (9-20); CALCIUM 8.7 MG/DL (8.4-10.2); CALCULATED OSMOLALITY 268 MOs/Kg (270-290); CHLORIDE 103 mEq/L (98-107); GLUCOSE 80 MG/DL (70-99); SODIUM LEVEL 140 mEq/L (137-146)
[2016-10-15] MEDS: FINASTERIDE 5 MG TAB PO SCH (09:50)
[2016-10-15] MEDS: AMLODIPINE 10 MG TAB PO SCH (09:50)
[2016-10-15] MEDS: ASPIRIN (CHEWABLE) 81 MG TAB PO SCH (09:50)
[2016-10-15] MEDS: SENNA CONCENTRATE TAB PO SCH (09:50)
[2016-10-15] MEDS: AMIODARONE 200 MG TAB PO SCH (09:50)
[2016-10-15] MEDS: FUROSEMIDE 40 MG TAB PO SCH (09:50)
[2016-10-15] MEDS: PROBIOTIC BLEND TAB PO SCH ×2 (11:18→17:52)
[2016-10-15] MEDS: ASCORBIC ACID 500 MG TAB PO SCH (11:18)
--- NOTE | 2016-10-15 15:55 | GENMEDPROG ---
Subjective Note: Patient complains of a sore bottom. He usually uses "butt cream" at home. He is requesting some here. Cultures are growing out a resistant Pseudomonas in his urine. A PICC line has been ordered. Notes Reviewed: Yes Events from last night noted and discussed with Clinical Staff Current Medication List: Reviewed Currently: Reports: Cough, ASHER DVT Prophylaxis: Yes - Physical Examination Vital Signs and I&O: Last Vital Signs Temp 98.5 F 10/15/16 13:25 Pulse 66 10/15/16 13:25 Resp 18 10/15/16 13:25 BP 138/67 10/15/16 13:25 Pulse Ox 93 10/15/16 13:25 Oxygen Pulse Oxygen Saturation 93 O2 Device Nasal Cannula Oxygen Flow Rate 3 Fraction of Inspired Oxygen ( FIO2) Intake & Output 10/12/16 10/13/16 10/14/16 10/15/16 23:59 23:59 23:59 23:59 Intake Total 2089 2971 1658 321 Output Total 100 2100 3700 1350 Balance 1988 556 -4675 -7968 Patient's weight 74.389 kg 76.657 kg 76.685 kg 75.841 kg General: Alert, Oriented x3, No acute distress, Well appearing, Well nourished HEENT: Normal (Normocephalic, atraumatic;EOMI.Sclera white, Nares patent, without discharge or bleeding. No oropharyngeal lesions or erythema. Mucous membranes are dry.) Neck: Non-tender, Full range of motion, Normal Trachea alignment, Normal inspection (No cervical lymphadenopathy. No supraclavicular lymphadenopathy.), No Masses palpable, Supple Lymphatics: Normal Respiratory: Diminished, Rhonchi Cardiovascular: Regular rate and rhythm (No bradycardia or tachycardia), Normal S1, No Gallops,Rubs/Murmurs, Normal S2, Good Pedal Pulses (DP pulses 2+ bilaterally) GI: Normal bowel sounds (normal active sounds), Soft (non-distended), Non tender , No hepatospenomegaly, No masses Extremities/Musculoskeletal: Normal pulses (DP pulses 2+ bilaterally) Skin: Warm,Dry and Intact, No rashes, No significant lesion Neurological: Strength at 5/5 X4 ext (Motor 5/5 throughout.), Normal tone, Cranial nerves 3-12 NL ( 2-12 grossly intact.) Psych/Mental Status: Appropriate, Normal Affect Lab/DI/Studies Reviewed: Microbiology 10/12/16 12:10 Urine - Brown Catheter Urine Culture - Final Pseudomonas aeruginosa drug resistant - Assessment (1) Left upper lobe pneumonia Acute J18.1 - LOBAR PNEUMONIA, UNSPECIFIED ORGANISM Qualifiers: Pneumonia type: due to unspecified organism Qualified Code(s): J18.1 - Lobar pneumonia, unspecified organism Comment/Plan: Continue supplemental oxygen and empiric IV antibiotics. Wean oxygen as able. (2) Acute respiratory failure with hypoxia Acute J96.01 - ACUTE RESPIRATORY FAILURE WITH HYPOXIA Comment/Plan: Due to pneumonia, treated as above (3) Pseudomonas urinary tract infection Acute N39.0 - URINARY TRACT INFECTION, SITE NOT SPECIFIED; B96.5 - PSEUDOMONAS (MALLEI) CAUSING DISEASES CLASSD ELSWHR Comment/Plan: Resistant to Cipro and Levaquin. No oral antibiotics are sensitive PICC line has been ordered. (4) Chronic indwelling Brown catheter Acute Z92.89 - PERSONAL HISTORY OF OTHER MEDICAL TREATMENT Comment/Plan: Will monitor closely. (5) HTN (hypertension) Acute I10 - ESSENTIAL (PRIMARY) HYPERTENSION Qualifiers: Hypertension type: essential hypertension Qualified Code(s): I10 - Essential (primary) hypertension Comment/Plan: Continue home medications. (6) Hypokalemia Acute E87.6 - HYPOKALEMIA Comment/Plan: Potassium improved today. - Plan PICC line and home with IV antibiotics. Disposition Plan: Hopefully home soon Case Care Discussed with: Patient Education/Counseling Given To: Patient Education/Counseling Given Regarding: Diagnosis, Treatment, Prognosis, Disposition Plan Total Time: 35 minutes Critical Care: No Couseling Time (>50% in counseling/coordination): No
[2016-10-15] MEDS: ENOXAPARIN 40 MG/0.4 ML PFS SQ SCH (17:53)
[2016-10-15] MEDS: TEMAZEPAM 15 MG CAP PO PRN (21:12)
[2016-10-16] MEDS: CEFEPIME HYDROCHLORIDE 2 GM in D5W 100 ML IV SCH ×2 (05:17→16:49)
[2016-10-16] MEDS: SODIUM CHLORIDE 0.9% 3 ML FLUSH FLUSH SCH ×2 (05:17→16:50)
[2016-10-16] MEDS: SODIUM CHLORIDE 0.9% 5 ML FLUSH FLUSH SCH ×2 (05:18→18:42)
[2016-10-16 07:07] LABS: MPV 8.2 fL (7.4-10.4)
[2016-10-16 07:29] LABS: BLOOD UREA NITROGEN 14 MG/DL (9-20); CALCIUM 8.4 MG/DL (8.4-10.2); CALCULATED OSMOLALITY 271 MOs/Kg (270-290); CHLORIDE 102 mEq/L (98-107); GLUCOSE 84 MG/DL (70-99); SODIUM LEVEL 141 mEq/L (137-146)
[2016-10-16] MEDS: AMIODARONE 200 MG TAB PO SCH (10:13)
[2016-10-16] MEDS: ASPIRIN (CHEWABLE) 81 MG TAB PO SCH (10:14)
[2016-10-16] MEDS: FUROSEMIDE 40 MG TAB PO SCH (10:14)
[2016-10-16] MEDS: AMLODIPINE 10 MG TAB PO SCH (10:14)
[2016-10-16] MEDS ORDERED: LIDOCAINE 1% 30 ML VIAL (PRESERVATIVE FREE) ONE (10:14)
[2016-10-16] MEDS: PROBIOTIC BLEND TAB PO SCH ×2 (10:15→16:50)
[2016-10-16] MEDS: FINASTERIDE 5 MG TAB PO SCH (10:15)
[2016-10-16] MEDS: SENNA CONCENTRATE TAB PO SCH (10:15)
[2016-10-16] MEDS: ASCORBIC ACID 500 MG TAB PO SCH (10:15)
--- NOTE | 2016-10-16 11:02 | PCM.DCS92 ---
- Final/Secondary Discharge Diagnosis (1) Left upper lobe pneumonia Acute J18.1 - LOBAR PNEUMONIA, UNSPECIFIED ORGANISM due to unspecified organism J18.1 - Lobar pneumonia, unspecified organism Comment: Continue supplemental oxygen and empiric IV antibiotics. Wean oxygen as able. (2) Acute respiratory failure with hypoxia Acute J96.01 - ACUTE RESPIRATORY FAILURE WITH HYPOXIA Comment: Due to pneumonia, treated as above (3) Pseudomonas urinary tract infection Acute N39.0 - URINARY TRACT INFECTION, SITE NOT SPECIFIED; B96.5 - PSEUDOMONAS (MALLEI) CAUSING DISEASES CLASSD ELSWHR Comment: Resistant to Cipro and Levaquin. No oral antibiotics are sensitive PICC line has been ordered. (4) Chronic indwelling Brown catheter Acute Z92.89 - PERSONAL HISTORY OF OTHER MEDICAL TREATMENT Present on Admission: Yes Comment: Will monitor closely. present times 4 years (5) HTN (hypertension) Acute I10 - ESSENTIAL (PRIMARY) HYPERTENSION Present on Admission: Yes essential hypertension I10 - Essential (primary) hypertension Comment: Continue home medications. (6) Hypokalemia Acute E87.6 - HYPOKALEMIA Present on Admission: Yes Comment: Potassium improved today. Discharge Disposition: Discharge w/ Home Health (RN) Discharge Condition: Improved Cognitive Discharge Status: Cognitive deficits prevent decision making for safety. Fuctional Discharge Status: Walker Assistance, Total Assistance Required, Fall Risk, Deconditioning, Ambulatory Dysfunction Physician Follow up/Referrals: Earl Fitch II, MD [Primary Care Provider] - One Week New Prescriptions: Probiotic Blend [Kellie Q] 1 tab PO BIDLS #60 tablet Cefepime Hydrochloride [Maxipime] 2 gm IV Q12H #6 vial Discharge Home Medication List Amiodarone [Cordarone, Pacerone] 200 mg PO DAILY 12/26/14 [History Confirmed ] Amlodipine [Norvasc] 10 mg PO DAILY 12/26/14 [History Confirmed 10/12/16] Finasteride [Proscar] 5 mg PO DAILY 12/26/14 [History Confirmed 10/12/16] Sennosides [Senokot] 8.6 mg PO DAILY 05/04/16 [History Confirmed 10/12/16] Ascorbic Acid [Vitamin C] 1,000 mg PO DAILY 08/15/16 [History Confirmed 10/12/16 ] Aspirin [Aspirin, Chewable] 81 mg PO DAILYWM #30 tablet 12/06/16 [Rx Confirmed 10/12/16] Furosemide [Lasix] 40 mg PO DAILY 10/12/16 [History Confirmed 10/12/16] Ibuprofen [Motrin Ib] 600 mg PO .ONCE 10/12/16 [History Confirmed 10/12/16] Cefepime Hydrochloride [Maxipime] 2 gm IV Q12H #6 vial 10/16/16 [Rx] Probiotic Blend [Kellie Q] 1 tab PO BIDLS #60 tablet 10/16/16 [Rx] New Discharge Medications (Rx) Cefepime Hydrochloride [Maxipime] 2 gm IV Q12H #6 vial 10/16/16 [Rx] Probiotic Blend [Kellie Q] 1 tab PO BIDLS #60 tablet 10/16/16 [Rx] O2 Device: Nasal Cannula Oxygen Flow Rate: 3 Oxygen to be used after Discharge: Continuous Diet at Discharge: As Tolerated Activity: No Restrictions, As Tolerated Call Office For: Worsening Symptoms, Fever over 100.5, Pain Uncontrolled By Meds - DC Summary Notes Hospital Course Note:: Discharge summary on patient named JAMIE LARSON admitted to [facility] on 10/12/16 by David Catherine MD. Date of discharge is []. Unfortunate 81-year-old gentleman who uses 3 L of oxygen at home presented to our facility hypoxemic with an acute aspiration pneumonia. He was placed on appropriate IV antibiotics and given his indwelling Brown a urinalysis was obtained which was abnormal. Subsequent urine culture grew out Pseudomonas aeruginosa. It was resistant to all oral antibiotics and therefore his IV antibiotics were continued. He will receive 3 more days of therapy at home with his last dose being in the afternoon of Saturday. This will fully treat his aspiration pneumonia as well as his Pseudomonas urinary tract infection. Unfortunately there are no antibiotics he can be given for double coverage. At this point patient has reached maximal benefit of hospitalization. He will discharge home after PICC line is placed for home IV antibiotics. Total Time: 45 min - Physical Exam Vital Signs: Last Vital Signs Temp 98 F 10/16/16 09:32 Pulse 63 10/16/16 09:32 Resp 18 10/16/16 09:32 BP 104/46 L 10/16/16 09:32 Pulse Ox 90 L 10/16/16 09:32 Oxygen Pulse Oxygen Saturation 90 O2 Device Nasal Cannula Oxygen Flow Rate 3 Fraction of Inspired Oxygen ( FIO2) Constitutional: Alert (Awake), No apparent distress Oriented to: Time, Person, Place - HEENT Head: Normal Eye: Normal Oropharynx: Normal (Pharynx: Moist without exudate,Gums-no swelling, No oropharyngeal lesions or erythema, Mucous membranes are dry.) Tympanic Membrane: Normal (No discharge) ENT EAC: Normal (No oropharyngeal lesions or erythema. Mucous membranes are dry. ) TMJ: Normal Nose: No Symptoms Reported - Respiratory/Cardiovascular Respiratory: Diminished, Rhonchi Cardiovascular: Normal (RRR , Normal S1, S2. No murmurs, rubs, or gallops. PMI non-displaced. Carotids: no carotid bruits. No bradycardia or tachycardia. DP pulses 2+ bilaterally.) - GI Auscultation: Normal (NABS) Palpation: Normal Tenderness: Non tender Bliss's Sign: Negative - Musculoskeletal Back: Normal Extremities: Pedal Edema (MILD, NON-PITTING) - Integumentary Lymphatics: Normal - Neurologic Memory Impaired: Normal Cerebellar: Normal Mood Description: Normal Thought: Coherent Perception: Normal - Other Exam Other Exam Findings: Laboratory Results - last 24 hr 10/16/16 10/16/16 06:35 06:35 WBC 6.8 RBC 2.99 L Hgb 8.1 L Hct 25.2 L MCV 84 MCH 27.0 MCHC 31.9 L RDW 16.0 H Plt Count 234 MPV 8.2 Sodium 141 Potassium 3.6 Chloride 102 Carbon Dioxide 32 Anion Gap 11 BUN 14 Creatinine 0.70 Estimated GFR (MDRD) > 60 Glucose 84 Calculated Osmolality 271 Calcium 8.4
--- NOTE | 2016-10-16 12:37 | DIRPT ---
CLINICAL DATA: 81-year-old male with pneumonia in need of durable venous access for outpatient IV antibiotic therapy EXAM: CENTRAL VENOUS CATHETER FLUOROSCOPY TIME: 36 seconds TECHNIQUE: The right arm was prepped with chlorhexidine, draped in the usual sterile fashion using maximum barrier technique (cap and mask, sterile gown, sterile gloves, large sterile sheet, hand hygiene and cutaneous antiseptic). Local anesthesia was attained by infiltration with 1% lidocaine. Ultrasound demonstrated patency of the right brachial vein, and this was documented with an image. Under real-time ultrasound guidance, this vein was accessed with a 21 gauge micropuncture needle and image documentation was performed. The needle was exchanged over a guidewire for a peel-away sheath through which a 39 cm 5 [place] single lumen power injectable PICC was advanced, and positioned with its tip at the lower SVC/right atrial junction. Fluoroscopy during the procedure and fluoro spot radiograph confirms appropriate catheter position. The catheter was flushed, secured to the skin with Prolene sutures, and covered with a sterile dressing. COMPLICATIONS: None. The patient tolerated the procedure well. IMPRESSION: Successful placement of a right arm single-lumen power PICC with sonographic and fluoroscopic guidance. The catheter is ready for use. Signed, Pascual Wu MD [facility] Electronically Signed By: Pascual Wu M.D. On: 10/16/2016 12:34
[2016-10-16] MEDS ORDERED: VARIBAR THIN 40% BARIUM 250 ML ONE (14:34)
[2016-10-16] MEDS ORDERED: VARIBAR NECTAR 40% BARIUM 240 ML ONE (14:34)
[2016-10-16] MEDS: ENOXAPARIN 40 MG/0.4 ML PFS SQ SCH (16:50)
[2016-10-16] MEDS: TEMAZEPAM 15 MG CAP PO PRN (22:51)
[2016-10-17] MEDS ORDERED: SECURA EXTRA PROTECTIVE CREAM TOP ONE (02:47)
[2016-10-17] MEDS: CEFEPIME HYDROCHLORIDE 2 GM in D5W 100 ML IV SCH ×2 (04:27→15:52)
[2016-10-17] MEDS: SODIUM CHLORIDE 0.9% 5 ML FLUSH FLUSH SCH ×2 (06:04→17:54)
[2016-10-17] MEDS: SODIUM CHLORIDE 0.9% 3 ML FLUSH FLUSH SCH ×2 (06:04→17:54)
[2016-10-17 07:18] LABS: MPV 8.5 fL (7.4-10.4)
[2016-10-17 07:50] LABS: BLOOD UREA NITROGEN 14 MG/DL (9-20); CALCIUM 8.5 MG/DL (8.4-10.2); CALCULATED OSMOLALITY 271 MOs/Kg (270-290); CHLORIDE 102 mEq/L (98-107); GLUCOSE 79 MG/DL (70-99); SODIUM LEVEL 141 mEq/L (137-146)
[2016-10-17] MEDS: AMLODIPINE 10 MG TAB PO SCH (08:36)
[2016-10-17] MEDS: FUROSEMIDE 40 MG TAB PO SCH (08:36)
[2016-10-17] MEDS: ASPIRIN (CHEWABLE) 81 MG TAB PO SCH (08:36)
[2016-10-17] MEDS: AMIODARONE 200 MG TAB PO SCH (08:36)
[2016-10-17] MEDS: SENNA CONCENTRATE TAB PO SCH (08:36)
[2016-10-17] MEDS: FINASTERIDE 5 MG TAB PO SCH (08:37)
[2016-10-17] MEDS: ASCORBIC ACID 500 MG TAB PO SCH (11:50)
[2016-10-17] MEDS: PROBIOTIC BLEND TAB PO SCH ×2 (11:50→17:40)
--- NOTE | 2016-10-17 17:08 | GENMEDPROG ---
Chief Complaint: feeliing better Notes Reviewed: Yes Events from last night noted and discussed with Clinical Staff Current Medication List: Reviewed Currently: Reports: Cough, ASHER DVT Prophylaxis: Yes - Physical Examination Vital Signs and I&O: Last Vital Signs Temp 98.2 F 10/17/16 13:01 Pulse 64 10/17/16 13:01 Resp 18 10/17/16 13:01 BP 117/51 L 10/17/16 13:01 Pulse Ox 95 10/17/16 13:01 Oxygen Pulse Oxygen Saturation 95 O2 Device Nasal Cannula Oxygen Flow Rate 3 Fraction of Inspired Oxygen ( FIO2) Intake & Output 10/14/16 10/15/16 10/16/16 10/17/16 23:59 23:59 23:59 23:59 Intake Total 1658 686 794 822 Output Total 3708 3935 1450 700 Balance -2042 -2139 -656 122 Patient's weight 76.685 kg 75.841 kg 75.251 kg 74.435 kg General: Alert, Oriented x3, No acute distress, Well appearing, Well nourished HEENT: Normal (Normocephalic, atraumatic;EOMI.Sclera white, Nares patent, without discharge or bleeding. No oropharyngeal lesions or erythema. Mucous membranes are dry.) Neck: Non-tender, Full range of motion, Normal Trachea alignment, Normal inspection (No cervical lymphadenopathy. No supraclavicular lymphadenopathy.), No Masses palpable, Supple Lymphatics: Normal Respiratory: Diminished, Rhonchi Cardiovascular: Regular rate and rhythm (No bradycardia or tachycardia), Normal S1, No Gallops,Rubs/Murmurs, Normal S2, Good Pedal Pulses (DP pulses 2+ bilaterally) GI: Normal bowel sounds (normal active sounds), Soft (non-distended), Non tender , No hepatospenomegaly, No masses Extremities/Musculoskeletal: Normal pulses (DP pulses 2+ bilaterally) Skin: Warm,Dry and Intact, No rashes, No significant lesion Neurological: Strength at 5/5 X4 ext (Motor 5/5 throughout.), Normal tone, Cranial nerves 3-12 NL ( 2-12 grossly intact.) Psych/Mental Status: Appropriate, Normal Affect Lab/DI/Studies Reviewed: 10/17/16 06:30 10/17/16 06:30 Laboratory Results - last 24 hr 10/17/16 10/17/16 06:30 06:30 WBC 6.4 RBC 2.95 L Hgb 8.0 L Hct 24.9 L MCV 84 MCH 27.1 MCHC 32.2 L RDW 16.3 H Plt Count 239 MPV 8.5 Sodium 141 Potassium 3.3 L Chloride 102 Carbon Dioxide 32 Anion Gap 10 BUN 14 Creatinine 0.70 Estimated GFR (MDRD) > 60 Glucose 79 Calculated Osmolality 271 Calcium 8.5 - Assessment (1) Left upper lobe pneumonia Acute J18.1 - LOBAR PNEUMONIA, UNSPECIFIED ORGANISM Qualifiers: Pneumonia type: due to unspecified organism Qualified Code(s): J18.1 - Lobar pneumonia, unspecified organism Comment/Plan: Continue supplemental oxygen and empiric IV antibiotics. Wean oxygen as able. (2) Hypokalemia Acute E87.6 - HYPOKALEMIA Comment/Plan: Supplement potassium today. (3) PAF (paroxysmal atrial fibrillation) Chronic I48.0 - PAROXYSMAL ATRIAL FIBRILLATION Comment/Plan: Monitor heart rate. (4) HTN (hypertension) Acute I10 - ESSENTIAL (PRIMARY) HYPERTENSION Qualifiers: Hypertension type: essential hypertension Qualified Code(s): I10 - Essential (primary) hypertension Comment/Plan: Continue home medications. (5) Pseudomonas urinary tract infection Acute N39.0 - URINARY TRACT INFECTION, SITE NOT SPECIFIED; B96.5 - PSEUDOMONAS (MALLEI) CAUSING DISEASES CLASSD ELSWHR Comment/Plan: Resistant to Cipro and Levaquin. No oral antibiotics are sensitive PICC line has been ordered. Disposition Plan: Hopefully home in a.m. Case Care Discussed with: Patient, Family, Nursing Staff, Resource Management Education/Counseling Given To: Patient, Family Member Education/Counseling Given Regarding: Diagnosis, Treatment Total Time: 39 min Critical Care: No Code: 89037 (12+)
[2016-10-17] MEDS: ENOXAPARIN 40 MG/0.4 ML PFS SQ SCH (17:40)
[2016-10-17] MEDS: POTASSIUM CHLORIDE 20 MEQ TAB PO SCH ×2 (18:08→20:51)
[2016-10-17] MEDS: ACETAMINOPHEN 325 MG/TAB TABLET PO PRN (22:48)
[2016-10-17] MEDS: TEMAZEPAM 15 MG CAP PO PRN (22:49)
[2016-10-18] MEDS: CEFEPIME HYDROCHLORIDE 2 GM in D5W 100 ML IV SCH ×2 (04:07→16:13)
[2016-10-18] MEDS: SODIUM CHLORIDE 0.9% 5 ML FLUSH FLUSH SCH ×2 (05:33→17:03)
[2016-10-18] MEDS: SODIUM CHLORIDE 0.9% 3 ML FLUSH FLUSH SCH ×2 (05:33→17:03)
[2016-10-18 07:23] LABS: MPV 8.2 fL (7.4-10.4)
[2016-10-18 07:29] LABS: BLOOD UREA NITROGEN 13 MG/DL (9-20); CALCIUM 8.5 MG/DL (8.4-10.2); CALCULATED OSMOLALITY 272 MOs/Kg (270-290); CHLORIDE 104 mEq/L (98-107); GLUCOSE 81 MG/DL (70-99); SODIUM LEVEL 142 mEq/L (137-146)
[2016-10-18] MEDS: SENNA CONCENTRATE TAB PO SCH (08:17)
[2016-10-18] MEDS: AMIODARONE 200 MG TAB PO SCH (08:17)
[2016-10-18] MEDS: FUROSEMIDE 40 MG TAB PO SCH (08:17)
[2016-10-18] MEDS: FINASTERIDE 5 MG TAB PO SCH (08:17)
[2016-10-18] MEDS: ASPIRIN (CHEWABLE) 81 MG TAB PO SCH (08:17)
[2016-10-18] MEDS: AMLODIPINE 10 MG TAB PO SCH (08:17)
--- NOTE | 2016-10-18 09:20 | DIRPT ---
CLINICAL DATA: Pneumonia. EXAM: CHEST 2 VIEW COMPARISON: 10/14/2015. FINDINGS: Interim removal of right central line. Right PICC line noted with tip at cavoatrial junction. Cardiac pacer in stable position. Heart size stable. Multifocal bilateral pulmonary infiltrates and/or edema, improved from prior exam. Small pleural effusions. Oral contrast in the colon. Prior cervical spine fusion . IMPRESSION: 1. Interim removal right central line. Interim placement of right PICC line, its tip is at the cavoatrial junction . 2. Interim partial clearing of multifocal bilateral pulmonary infiltrates and or edema. Small bilateral pleural effusions. Electronically Signed By: Fredrick Howell On: 10/18/2016 09:18
[2016-10-18] MEDS: PROBIOTIC BLEND TAB PO SCH ×2 (11:40→17:33)
[2016-10-18] MEDS: ASCORBIC ACID 500 MG TAB PO SCH (11:40)
[2016-10-18] MEDS: ENOXAPARIN 40 MG/0.4 ML PFS SQ SCH (17:33)
--- NOTE | 2016-10-18 19:11 | GENMEDPROG ---
Chief Complaint: Sleepy today mild cough Notes Reviewed: Yes Events from last night noted and discussed with Clinical Staff Current Medication List: Reviewed Currently: Reports: Cough, ASHER DVT Prophylaxis: Yes - Physical Examination Vital Signs and I&O: Last Vital Signs Temp 97.6 F 10/18/16 16:00 Pulse 66 10/18/16 16:00 Resp 16 10/18/16 16:00 BP 135/65 10/18/16 16:00 Pulse Ox 98 10/18/16 16:00 Oxygen Pulse Oxygen Saturation 98 O2 Device Nasal Cannula Oxygen Flow Rate 3 Fraction of Inspired Oxygen ( FIO2) Intake & Output 10/15/16 10/16/16 10/17/16 10/18/16 23:59 23:59 23:59 23:59 Intake Total 678 578 8744 770 Output Total 6715 0586 2380 8453 Balance -2139 -656 -991 -3155 Patient's weight 75.841 kg 75.251 kg 74.435 kg 74.049 kg General: Alert, Oriented x3, No acute distress, Well appearing, Well nourished HEENT: Normal (Normocephalic, atraumatic;EOMI.Sclera white, Nares patent, without discharge or bleeding. No oropharyngeal lesions or erythema. Mucous membranes are dry.) Neck: Non-tender, Full range of motion, Normal Trachea alignment, Normal inspection (No cervical lymphadenopathy. No supraclavicular lymphadenopathy.), No Masses palpable, Supple Lymphatics: Normal Respiratory: Diminished, Rhonchi Cardiovascular: Regular rate and rhythm (No bradycardia or tachycardia), Normal S1, No Gallops,Rubs/Murmurs, Normal S2, Good Pedal Pulses (DP pulses 2+ bilaterally) GI: Normal bowel sounds (normal active sounds), Soft (non-distended), Non tender , No hepatospenomegaly, No masses Extremities/Musculoskeletal: Normal pulses (DP pulses 2+ bilaterally) Skin: Warm,Dry and Intact, No rashes, No significant lesion Neurological: Strength at 5/5 X4 ext (Motor 5/5 throughout.), Normal tone, Cranial nerves 3-12 NL ( 2-12 grossly intact.) Psych/Mental Status: Appropriate, Normal Affect Lab/DI/Studies Reviewed: 10/18/16 06:55 10/18/16 06:55 Laboratory Results - last 24 hr 10/18/16 10/18/16 06:55 06:55 WBC 6.8 RBC 2.99 L Hgb 8.1 L Hct 24.9 L MCV 83 MCH 27.2 MCHC 32.7 L RDW 16.0 H Plt Count 252 MPV 8.2 Sodium 142 Potassium 3.9 Chloride 104 Carbon Dioxide 35 H Anion Gap 7 L BUN 13 Creatinine 0.80 Estimated GFR (MDRD) > 60 Glucose 81 Calculated Osmolality 272 Calcium 8.5 - Assessment (1) Left upper lobe pneumonia Acute J18.1 - LOBAR PNEUMONIA, UNSPECIFIED ORGANISM Qualifiers: Pneumonia type: due to unspecified organism Qualified Code(s): J18.1 - Lobar pneumonia, unspecified organism Comment/Plan: Continue supplemental oxygen and empiric IV antibiotics. Wean oxygen as able. Pneumonia is improving and may be able to discharge soon. (2) PAF (paroxysmal atrial fibrillation) Chronic I48.0 - PAROXYSMAL ATRIAL FIBRILLATION Comment/Plan: Monitor heart rate. (3) HTN (hypertension) Acute I10 - ESSENTIAL (PRIMARY) HYPERTENSION Qualifiers: Hypertension type: essential hypertension Qualified Code(s): I10 - Essential (primary) hypertension Comment/Plan: Continue home medications. (4) Pseudomonas urinary tract infection Acute N39.0 - URINARY TRACT INFECTION, SITE NOT SPECIFIED; B96.5 - PSEUDOMONAS (MALLEI) CAUSING DISEASES CLASSD ELSWHR Comment/Plan: Intermediate sensitivity to Cipro and Levaquin. IV cefepime is given as well. 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 I indicated to the his son that recurrent urinary tract infections with Pseudomonas are likely to occur. My concern is that his main issue is the pneumonia which is much improved. Disposition Plan: Hopefully home in a.. Case Care Discussed with: Patient, Nursing Staff, Resource Management Education/Counseling Given To: Patient Education/Counseling Given Regarding: Diagnosis Total Time: 38 min Critical Care: No Code: 93063 (12+)
[2016-10-18] MEDS: CIPROFLOXACIN HCL 500 MG TAB PO SCH (21:29)
[2016-10-19] MEDS: CEFEPIME HYDROCHLORIDE 2 GM in D5W 100 ML IV SCH (02:52)
[2016-10-19] MEDS: ACETAMINOPHEN 325 MG/TAB TABLET PO PRN (02:53)
[2016-10-19] MEDS: SODIUM CHLORIDE 0.9% 5 ML FLUSH FLUSH SCH (05:13)
[2016-10-19] MEDS: SODIUM CHLORIDE 0.9% 3 ML FLUSH FLUSH SCH (05:13)
[2016-10-19 07:06] LABS: MPV 8.3 fL (7.4-10.4)
[2016-10-19 07:35] LABS: % SATURATION 4.5 % (20-50)
[2016-10-19 07:37] LABS: BLOOD UREA NITROGEN 14 MG/DL (9-20); CALCIUM 8.8 MG/DL (8.4-10.2); CALCULATED OSMOLALITY 273 MOs/Kg (270-290); CHLORIDE 101 mEq/L (98-107); GLUCOSE 78 MG/DL (70-99); SODIUM LEVEL 142 mEq/L (137-146)
[2016-10-19] MEDS: FINASTERIDE 5 MG TAB PO SCH (08:38)
[2016-10-19] MEDS: SENNA CONCENTRATE TAB PO SCH (08:38)
[2016-10-19] MEDS: AMLODIPINE 10 MG TAB PO SCH (08:38)
[2016-10-19] MEDS: CIPROFLOXACIN HCL 500 MG TAB PO SCH (08:38)
[2016-10-19] MEDS: AMIODARONE 200 MG TAB PO SCH (08:38)
[2016-10-19] MEDS: ASPIRIN (CHEWABLE) 81 MG TAB PO SCH (08:38)
[2016-10-19] MEDS: FUROSEMIDE 40 MG TAB PO SCH (08:38)
[2016-10-19 11:42] VITALS: TEMP 97.7
--- NOTE | 2016-10-19 12:01 | PCM.DCS92 ---
- Final/Secondary Discharge Diagnosis (1) Left upper lobe pneumonia Acute J18.1 - LOBAR PNEUMONIA, UNSPECIFIED ORGANISM Present on Admission: Yes due to unspecified organism J18.1 - Lobar pneumonia, unspecified organism Comment: Continue supplemental oxygen and empiric IV antibiotics. Wean oxygen as able. Pneumonia is improving and may be able to discharge soon. (2) PAF (paroxysmal atrial fibrillation) Chronic I48.0 - PAROXYSMAL ATRIAL FIBRILLATION Present on Admission: No Comment: Monitor heart rate. (3) HTN (hypertension) Acute I10 - ESSENTIAL (PRIMARY) HYPERTENSION Present on Admission: Yes essential hypertension I10 - Essential (primary) hypertension Comment: Continue home medications. 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 IV cefepime is given as well. 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 I indicated to the his son that recurrent urinary tract infections with Pseudomonas are likely to occur. My concern is that his main issue is the pneumonia which is much improved. Discharge Disposition: Discharge w/ Home Health Discharge Condition: Improved Cognitive Discharge Status: Unimpaired Fuctional Discharge Status: Walker Assistance Physician Follow up/Referrals: Earl Fitch II, MD [Primary Care Provider] - 10/30/16 1:50 pm New Prescriptions: Cefepime Hydrochloride [Maxipime] 2 gm IV Q12H #6 vial Ciprofloxacin HCl [Cipro] 500 mg PO BID #14 tablet Probiotic Blend [Kellie Q] 1 tab PO BIDLS #60 tablet Discharge Home Medication List Amiodarone [Cordarone, Pacerone] 200 mg PO DAILY 12/26/14 [History Confirmed 12/28 Last Taken 10/16/16 10:13] Amlodipine [Norvasc] 10 mg PO DAILY 12/26/14 [History Confirmed 10/16/16 Last Taken 10/16/16 10:14] Finasteride [Proscar] 5 mg PO DAILY 12/26/14 [History Confirmed 10/16/16 Last Taken 10/16/16 10:15] Sennosides [Senokot] 8.6 mg PO DAILY 05/04/16 [History Confirmed 10/16/16 Last Taken 10/16/16 10:15] Ascorbic Acid [Vitamin C] 1,000 mg PO DAILY 08/15/16 [History Confirmed Last Taken 10/16/16 10:15] Aspirin [Aspirin, Chewable] 81 mg PO DAILYWM #30 tablet 09/18/16 [Rx Confirmed 10/16/16 Last Taken 10/16/16 10:14] Furosemide [Lasix] 40 mg PO DAILY 10/12/16 [History Confirmed 10/16/16 Last Taken 10/16/16 10:14] Ibuprofen [Motrin Ib] 600 mg PO .ONCE 10/12/16 [History Confirmed 10/12/16 Last Taken 10/12/16 08:00] Cefepime Hydrochloride [Maxipime] 2 gm IV Q12H #6 vial 10/16/16 [Rx Last Taken 10/16/16 05:17] Probiotic Blend [Kellie Q] 1 tab PO BIDLS #60 tablet 10/16/16 [Rx Last Taken 12/28 10:15] Ciprofloxacin HCl [Cipro] 500 mg PO BID #14 tablet 10/19/16 [Rx Last Taken Unknown] 10/19/16 06:28 10/19/16 06:28 Laboratory Results - last 24 hr 10/19/16 10/19/16 10/19/16 06:28 06:28 06:28 WBC 6.6 RBC 3.04 L Hgb 8.2 L Hct 25.4 L MCV 83 MCH 26.8 L MCHC 32.2 L RDW 16.0 H Plt Count 248 MPV 8.3 Sodium 142 Potassium 3.6 Chloride 101 Carbon Dioxide 34 H Anion Gap 11 BUN 14 Creatinine 0.70 Estimated GFR (MDRD) > 60 Glucose 78 Calculated Osmolality 273 Calcium 8.8 Iron 12.0 L TIBC 262 % Saturation 4.5 L Ferritin 82.5 O2 Device: Room Air Oxygen to be used after Discharge: Continuous Diet at Discharge: As Tolerated Activity: No Restrictions, As Tolerated Call Office For: Worsening Symptoms, Fever over 100.5, Pain Uncontrolled By Meds - DC Summary Notes Hospital Course Note:: Discharge summary on patient named JAMIE LARSON admitted to [facility] on 10/12/16 by David Catherine MD. Date of discharge is []. Total Time: 37 min Code: 81242 (>30min.) - Physical Exam Vital Signs: Last Vital Signs Temp 97.7 F 10/19/16 04:59 Pulse 64 10/19/16 09:35 Resp 20 10/19/16 09:35 BP 110/47 L 10/19/16 09:35 Pulse Ox 98 10/19/16 09:35 Oxygen Pulse Oxygen Saturation 98 O2 Device Room Air Oxygen Flow Rate 3 Fraction of Inspired Oxygen ( FIO2) Constitutional: Alert (Awake), No apparent distress Oriented to: Time, Person, Place - HEENT Head: Normal Eye: Normal Oropharynx: Normal (Pharynx: Moist without exudate,Gums-no swelling, No oropharyngeal lesions or erythema, Mucous membranes are dry.) Tympanic Membrane: Normal (No discharge) ENT EAC: Normal (No oropharyngeal lesions or erythema. Mucous membranes are dry. ) TMJ: Normal Nose: No Symptoms Reported - Respiratory/Cardiovascular Respiratory: Diminished, Rhonchi - GI Auscultation: Normal (NABS) Palpation: Normal Tenderness: Non tender Bliss's Sign: Negative - Musculoskeletal Back: Normal Extremities: Pedal Edema (MILD, NON-PITTING) - Integumentary Skin: Normal (Warm dry no rashes) Lymphatics: Normal - Neurologic Memory Impaired: Normal Motor Function: Normal (Motor 5/5 throughout.Normal tone, Pulses 2+ No cyanosis or edema, FROM) Cranial Nerve: Normal (CN II-XII intact sensation, strength 5/5) Cerebellar: Normal Mood Description: Normal Thought: Coherent Perception: Normal
[2016-10-19] MEDS: PROBIOTIC BLEND TAB PO SCH (12:14)
[2016-10-19] MEDS: ASCORBIC ACID 500 MG TAB PO SCH (12:14)
[2016-10-19] MEDS ORDERED: CEFEPIME HYDROCHLORIDE 2 GM in D5W 100 ML IV ONE ×2 (12:30→12:40)
[2016-10-19 17:43] VITALS: BP 120/59; PULSE 69; TEMP 98.5
== END 2016-10-19 18:54 | disposition home health service (06) | DRG 871 ==
LOC: ED 11:25 → PCU 14:22 → MPS3 10-13 19:50
PROVIDERS: ADMIT Hospitalist; ATTEND Internal Medicine
PROC: 039C3ZZ Drainage of Left Radial Artery, Percutaneous Approach (ICD-10-PCS; 2016-10-12)
PROC: 05HM33Z Insertion of Infusion Device into Right Internal Jugular Vein, Percutaneous Approach (ICD-10-PCS; principal; 2016-10-13)
PROC: B513ZZA Fluoroscopy of Right Jugular Veins, Guidance (ICD-10-PCS; 2016-10-13)
DX: A41.9 Sepsis, unspecified organism (principal); J96.01 Acute respiratory failure with hypoxia; J69.0 Pneumonitis due to inhalation of food and vomit; I11.0 Hypertensive heart disease with heart failure; J18.1 Lobar pneumonia, unspecified organism; N39.0 Urinary tract infection, site not specified; I50.9 Heart failure, unspecified; R65.20 Severe sepsis without septic shock; I48.0 Paroxysmal atrial fibrillation; E87.6 Hypokalemia; B96.5 Pseudomonas (aeruginosa) (mallei) (pseudomallei) as the cause of diseases classified elsewhere; I87.8 Other specified disorders of veins; E78.00 Pure hypercholesterolemia, unspecified; Z95.0 Presence of cardiac pacemaker; Z79.82 Long term (current) use of aspirin; Z79.899 Other long term (current) drug therapy; Z92.89 Personal history of other medical treatment; Z75.1 Person awaiting admission to adequate facility elsewhere; Z16.20 Resistance to unspecified antibiotic
CPT/HCPCS: 36415; 36569; 36600; 71010; 71020; 76937; 77001; 80048; 80053; 81001; 82728; 82803; 83540; 83550; 83735; 83880; 84132; 84484; 85025; 85027; 85610; 85730; 87040; 87070; 87077; 87086; 87186; 87205; 87804; 93005; 94640; 94664; 96361; 96365; 96372; 98960; 99285; G0237; J0692; J0743; J1642; J1650; J1956; J2001; J3370; J3475; J3480; J3490; J7040; J7060

== ENCOUNTER 2016-11-06 11:01 | Inpatient (IN) | payer MEDICARE, OTHER ==
[2016-11-06] MEDS ORDERED: Albuterol/Ipratropium Neb 3 ML NEB NEB ONE (11:14)
[2016-11-06] MEDS ORDERED: SODIUM CHLORIDE 0.9% 10 ML FLUSH FLUSH PRN (11:14)
[2016-11-06] MEDS ORDERED: METHYLPREDNISOLONE 125 MG/2 ML VIAL IV ONE (11:14)
--- NOTE | 2016-11-06 11:17 | EDPRACDOC ---
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 Denies fever, earache, sore throat, cp, abd pain, n/v, changes in bowel or bladder, leg swelling, rash. Pt states recently admitted for PNA couple weeks ago. Shortness of Breath: Moderate Relevant History: Reports: COPD Cough: Reports: Productive Rhinorrhea: Reports: Clear Ear Symptoms: Reports: None SOB Worsens with: Reports: Exertion, Coughing SOB Improves with: Reports: Nothing Associated Signs and symptoms: Reports: Cough, Nasal Symptoms <Yeny Ndiaye - Last Filed: 11/06/16 12:41> <Musa Garcia - Last Filed: 11/06/16 14:41> - General Information Stated Complaint: RESP.DISTRESS Time Seen by Provider: 11/06/16 11:10 Home Medications: Home Medications Amiodarone [Cordarone, Pacerone] 200 mg PO DAILY 12/26/14 Amlodipine [Norvasc] 10 mg PO DAILY 12/26/14 Finasteride [Proscar] 5 mg PO DAILY 12/26/14 Sennosides [Senokot] 8.6 mg PO DAILY 05/04/16 Ascorbic Acid [Vitamin C] 1,000 mg PO DAILY 08/15/16 Aspirin [Aspirin, Chewable] 81 mg PO DAILYWM #30 tablet 09/18/16 Furosemide [Lasix] 40 mg PO DAILY 10/12/16 Ibuprofen [Motrin Ib] 600 mg PO DAILY PRN 10/12/16 Probiotic Blend [Kellie Q] 1 tab PO BIDLS #60 tablet 10/16/16 Allergies/Adverse Reactions: Allergies Allergy/AdvReac Type Severity Reaction Status Date / Time Qhtsirz-Wop-Ltr Reductase Allergy Intermediate Unknown/See Verified 11/06/16 11: 27 Inhibitor Comments piperacillin sodium Allergy Hives* Verified 11/06/16 11:27 [From Zosyn] tazobactam sodium Allergy Hives* Verified 11/06/16 11:27 [From Zosyn] - Treatment Prior to ED Arrival Reported Medications/Treatment 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 Denies: Heart Attack, Cardiac Catheterization (DC cardioversion x 2) Respiratory History: Denies: Asthma, COPD, Pneumonia, Emphysema GI/ History: Reports: Urinary Tract Infection, Kidney Stones, BPH (URINARY RETENTION WITH CHRONIC INDWELLING MIDDLETON CATHETER). Denies: Pancreatitis Musculoskeletal History: Reports: Arthritis, Osteoarthritis Psychological History: Denies: Depression, Anxiety, Substance Use Disorder Systemic History: Reports: Anemia (iron deficiency). Denies: Cancer, Diabetes, Hyperthyroidism Surgical History: Reports: Cholecystectomy, Hernia Surgery (RIGHT GROIN), Tonsillectomy/Adnoidectomy, Other (hemorrhoidectomy). Denies: Cardiac Catheterization (DC cardioversion x 2) - Family Medical History Reports: Diabetes (father), Cancer (MOTHER- COLON CANCER), Cardiac Disorders (2 brothers atrial fib, CAD), Respiratory Disorders (brother- emphysema) - Social Medical History Smoking Status: Never smoker Social History: Denies: Substance Use Disorder ETOH: None Substance Abuse: None <Yeny Ndiaye - Last Filed: 11/06/16 12:41> EDM Review of Systems - Review of Systems Constitutional: Weakness Ears: No Symptoms Reported. negative: Pain, Hearing Loss, Drainage, Ear Pulling Throat: No Symptoms Reported. negative: Pain, Swelling Nose: Congestion. negative: No Symptoms Reported, Abrasion, Bleeding, Discharge , Deformity, Ecchymosis, Injection, Laceration, Swelling, Tender Mouth: No Symptoms Reported. negative: Pain, Drooling Respiratory: Cough, Shortness of Breath Cardiovascular: No Symptoms Reported. negative: Chest Pain, Palpitations, Syncope, Edema, Orthopnea, PND, Skin Mottling, Cyanosis Gastrointestinal: No Symptoms Reported. negative: Pain, Constipation, Nausea, Vomiting, Diarrhea, Melena, Formula Intolerance Genitourinary: No Symptoms Reported. negative: Dysuria, Hematuria, Frequency, Discharge, Bleeding, Testicular Pain, Neurological: No Symptoms Reported. negative: Headache, Dizziness, Seizure, Numbness, Weakness, Speech Difficulty, Gait Difficulty Musculoskeletal: No Symptoms Reported. negative: Neck, Chestwall, Ribs, Back, Shoulder, Arm, Elbow, Forearm, Wrist, Hand, Pelvis, Hip, Femur, Knee, Leg, Ankle , Foot Integumentary: No Symptoms Reported. negative: Itching, Rash, Bruising, Wound Allergic/Immunologic: No Symptoms Reported. negative: Hives, Itching Hematologic: No Symptoms Reported. negative: Lymphadenopathy, Easy Bruising, Easy Bleeding Psychiatric: No Symptoms Reported. negative: Anxiety, Depression, Hallucinations, Insomnia, Suicidal <Yeny Ndiaye - Last Filed: 11/06/16 12:41> - Physical Exam Constitutional: Alert Oriented to: Time, Person, Place Last recorded Vital Signs: Oxygen Pulse Oxygen Saturation O2 Device Oxygen Flow Rate Fraction of Inspired Oxygen ( FIO2) - HEENT Head: Normal ( normocephalic) Eye Exam: Normal (PERRL, EOMI, Sclera white) Oropharynx: Normal (Pharynx:Moist without exudate,Gums-no swelling) Neck: Normal (FROM, trachea at midline) - Respiratory/Cardiovascular Respiratory: Rales, Wheezes Cardiovascular: Normal (RRR without murmur, gallop or rub) - GI Auscultation: Normal (NABS) Palpation: Normal (Soft,No rebound or guarding, non distended) Tenderness: Non tender - Musculoskeletal Back: Normal (Non-Tender) Extremities: Normal (Normal tone, Pulses 2+ No cyanosis or edema, FROM) - Integumentary Skin: Normal, Warm, Dry Lymphatics: Normal (no adenopathy) - Neurologic Memory Impaired: Normal Motor Function: Normal (Normal tone, Pulses 2+ No cyanosis or edema, FROM) Mood Description: Normal Perception: Normal <Yeny Ndiaye - Last Filed: 11/06/16 12:41> - Physical Exam Last recorded Vital Signs: Last Vital Signs Temp 97.9 F 11/06/16 11:01 Pulse 64 11/06/16 12:00 Resp 22 11/06/16 12:00 BP 135/60 11/06/16 12:00 Pulse Ox 92 11/06/16 12:00 Oxygen Pulse Oxygen Saturation 92 O2 Device Venturi Mask Oxygen Flow Rate 8 Fraction of Inspired Oxygen ( 40 FIO2) <Musa Garcia - Last Filed: 11/06/16 14:41> ED SOB MDM - Differential Diagnosis Differential Diagnosis: Heart Failure, Pnuemonia, Respiratory Insufficiency, URI - Results Result Diagrams: 11/06/16 11:15 11/06/16 11:15 Results: 11/06/16 12:40 Laboratory Results - last 24 hr 11/06/16 11/06/16 11/06/16 11:15 11:15 11:15 WBC 7.3 RBC 3.47 L Hgb 8.8 L Hct 28.1 L MCV 81 MCH 25.3 L MCHC 31.3 L RDW 16.6 H Plt Count 238 MPV 8.5 Neut % (Auto) 67.4 Lymph % (Auto) 13.3 L Dickens % (Auto) 13.6 H Eos % (Auto) 5.4 H Baso % (Auto) 0.3 Absolute Neuts (auto) 4.89 Absolute Lymphs (auto) 0.95 PT INR APTT Puncture Site pH pCO2 pO2 HCO3 Total CO2 Base Excess FiO2 % Specimen Drawn By Sodium 144 Potassium 3.0 L Chloride 98 Carbon Dioxide 38 H Anion Gap 11 BUN 19 Creatinine 1.00 Estimated GFR (MDRD) > 60 Glucose 87 Calculated Osmolality 278 Lactic Acid 0.8 Calcium 8.8 Corrected Calcium 9.3 Total Bilirubin 0.7 AST 23 ALT 23 Alkaline Phosphatase 73 Troponin I 0.02 Fhe-T-Syonpkxmuzy Pept 2840 H Total Protein 7.4 Albumin 3.5 Urine Color Urine Clarity Urine pH Ur Specific Bard Urine Protein Urine Glucose (UA) Urine Ketones Urine Occult Blood Urine Nitrite Urine Bilirubin Urine Urobilinogen Ur Leukocyte Esterase Urine RBC Urine WBC Urine WBC Clumps Urine Bacteria Hyaline Casts Urine Mucus Urine Yeast 11/06/16 11/06/16 11/06/16 11:15 11:35 12:05 WBC RBC Hgb Hct MCV MCH MCHC RDW Plt Count MPV Neut % (Auto) Lymph % (Auto) Dickens % (Auto) Eos % (Auto) Baso % (Auto) Absolute Neuts (auto) Absolute Lymphs (auto) PT 11.4 H INR 1.1 APTT 28.3 Puncture Site Lra pH 7.520 H pCO2 51.0 H pO2 52.0 L HCO3 41.6 H Total CO2 43.2 H Base Excess 16.2 H FiO2 % 3l/m nc Specimen Drawn By Dared Sodium Potassium Chloride Carbon Dioxide Anion Gap BUN Creatinine Estimated GFR (MDRD) Glucose Calculated Osmolality Lactic Acid Calcium Corrected Calcium Total Bilirubin AST ALT Alkaline Phosphatase Troponin I Hqi-S-Vcetygnlser Pept Total Protein Albumin Urine Color Yellow Urine Clarity Cldy Urine pH 7.0 Ur Specific Bard 1.010 Urine Protein 1+ H Urine Glucose (UA) Neg Urine Ketones Neg Urine Occult Blood Neg Urine Nitrite Neg Urine Bilirubin Neg Urine Urobilinogen <2.0 Ur Leukocyte Esterase 2+ H Urine RBC 5-10 H Urine WBC Tntc H Urine WBC Clumps Present H Urine Bacteria 3+ H Hyaline Casts 5-10 H Urine Mucus Mod H Urine Yeast Many H - EKG EKG #1 EKG Time: 11:21 Rate: bpm: 60 [place]: LAD Rhythm: Paced ST: Nonsp - Diagnostic Imaging Chest Image interpreted by: Radiologist Diagnostic Imaging Comments: IMPRESSION: There is worsening infiltrate/pneumonia in left midlung. New hazy infiltrate right perihilar. Probable small bilateral pleural effusion. Less likely asymmetric pulmonary edema. Clinical correlation is necessary. <Yeny Ndiaye - Last Filed: 11/06/16 12:41> - Results Result Diagrams: 11/06/16 11:15 11/06/16 11:15 Results: WBC 7.3 xk/uL (3.8-10.8) 11/06/16 11:15 RBC 3.47 xM/uL (4.70-6.10) L 11/06/16 11:15 Hgb 8.8 g/dL (14.0-18.0) L 11/06/16 11:15 Hct 28.1 % (42-52) L 11/06/16 11:15 MCV 81 fL (80-94) 11/06/16 11:15 MCH 25.3 pg (27-32) L 11/06/16 11:15 MCHC 31.3 g/dl (33-36) L 11/06/16 11:15 RDW 16.6 % (11.5-14.5) H 11/06/16 11:15 Plt Count 238 xk/uL (130-400) 11/06/16 11:15 MPV 8.5 fL (7.4-10.4) 11/06/16 11:15 Neut % (Auto) 67.4 % (45-76) 11/06/16 11:15 Lymph % (Auto) 13.3 % (17-44) L 11/06/16 11:15 Dickens % (Auto) 13.6 % (3-10) H 11/06/16 11:15 Eos % (Auto) 5.4 % (0-5) H 11/06/16 11:15 Baso % (Auto) 0.3 % (0-2) 11/06/16 11:15 Absolute Neuts (auto) 4.89 xk/uL (1.7-8.2) 11/06/16 11:15 Absolute Lymphs (auto) 0.95 xk/uL (0.65-4.75) 11/06/16 11:15 PT 11.4 SEC (9.2-11.2) H 11/06/16 11:15 INR 1.1 11/06/16 11:15 APTT 28.3 SEC (22-35) 11/06/16 11:15 Puncture Site Lra 11/06/16 11:35 pH 7.520 pH UNITS (7.35-7.45) H 11/06/16 11:35 pCO2 51.0 mmHg (35-45) H 11/06/16 11:35 pO2 52.0 mmHg (80-100) L 11/06/16 11:35 HCO3 41.6 MMOL/L (22-26) H 11/06/16 11:35 Total CO2 43.2 MMOL/L (23-27) H 11/06/16 11:35 Base Excess 16.2 (+/- 2) H 11/06/16 11:35 FiO2 % 3l/m nc 11/06/16 11:35 Specimen Drawn By Dared 11/06/16 11:35 Sodium 144 mEq/L (137-146) 11/06/16 11:15 Potassium 3.0 mEq/L (3.5-5.1) L 11/06/16 11:15 Chloride 98 mEq/L (98-107) 11/06/16 11:15 Carbon Dioxide 38 mMOL/L (22-33) H 11/06/16 11:15 Anion Gap 11 mEq/L (8-16) 11/06/16 11:15 BUN 19 MG/DL (9-20) 11/06/16 11:15 Creatinine 1.00 MG/DL (0.66-1.25) 11/06/16 11:15 Estimated GFR (MDRD) > 60 mL/min (>=60) 11/06/16 11:15 Glucose 87 MG/DL (70-99) 11/06/16 11:15 Calculated Osmolality 278 MOs/Kg (270-290) 11/06/16 11:15 Lactic Acid 0.8 mEq/L (0.7-2.1) 11/06/16 11:15 Calcium 8.8 MG/DL (8.4-10.2) 11/06/16 11:15 Corrected Calcium 9.3 MG/DL (8.4-10.2) 11/06/16 11:15 Total Bilirubin 0.7 MG/DL (0.2-1.3) 11/06/16 11:15 AST 23 IU/L (17-59) 11/06/16 11:15 ALT 23 IU/L (21-72) 11/06/16 11:15 Alkaline Phosphatase 73 IU/L (50-160) 11/06/16 11:15 Troponin I 0.02 ng/mL (<.04) 11/06/16 11:15 Ouu-N-Bhxytcwvgao Pept 2840 pg/mL (0-1800) H 11/06/16 11:15 Total Protein 7.4 G/DL (6.3-8.2) 11/06/16 11:15 Albumin 3.5 G/DL (3.5-5.0) 11/06/16 11:15 Urine Color Yellow 11/06/16 12:05 Urine Clarity Cldy 11/06/16 12:05 Urine pH 7.0 (5.0-8.0) 11/06/16 12:05 Ur Specific Bard 1.010 (1.003-1.035) 11/06/16 12:05 Urine Protein 1+ (NEG/TRACE) H 11/06/16 12:05 Urine Glucose (UA) Neg (NEGATIVE) 11/06/16 12:05 Urine Ketones Neg (NEGATIVE) 11/06/16 12:05 Urine Occult Blood Neg (NEG/TRACE) 11/06/16 12:05 Urine Nitrite Neg (NEGATIVE) 11/06/16 12:05 Urine Bilirubin Neg (NEGATIVE) 11/06/16 12:05 Urine Urobilinogen <2.0 MG/DL (0-1) 11/06/16 12:05 Ur Leukocyte Esterase 2+ (NEGATIVE) H 11/06/16 12:05 Urine RBC 5-10 (0-2) H 11/06/16 12:05 Urine WBC Tntc (0-2) H 11/06/16 12:05 Urine WBC Clumps Present (NONE) H 11/06/16 12:05 Urine Bacteria 3+ (NEG/FEW) H 11/06/16 12:05 Hyaline Casts 5-10 (0-2) H 11/06/16 12:05 Urine Mucus Mod (NEG/OCC) H 11/06/16 12:05 Urine Yeast Many (NONE) H 11/06/16 12:05 Lab Results 11/06/16 11/06/16 11/06/16 12:05 11:35 11:15 WBC RBC Hgb Hct MCV MCH MCHC RDW Plt Count MPV Neut % (Auto) Lymph % (Auto) Dickens % (Auto) Eos % (Auto) Baso % (Auto) Absolute Neuts (auto) Absolute Lymphs (auto) PT 11.4 H INR 1.1 APTT 28.3 Puncture Site Lra pH 7.520 H pCO2 51.0 H pO2 52.0 L HCO3 41.6 H Total CO2 43.2 H Base Excess 16.2 H FiO2 % 3l/m nc Specimen Drawn By Dared Sodium Potassium Chloride Carbon Dioxide Anion Gap BUN Creatinine Estimated GFR (MDRD) Glucose Calculated Osmolality Lactic Acid Calcium Corrected Calcium Total Bilirubin AST ALT Alkaline Phosphatase Troponin I Nrq-T-Tbgiztdgbnn Pept Total Protein Albumin Urine Color Yellow Urine Clarity Cldy Urine pH 7.0 Ur Specific Bard 1.010 Urine Protein 1+ H Urine Glucose (UA) Neg Urine Ketones Neg Urine Occult Blood Neg Urine Nitrite Neg Urine Bilirubin Neg Urine Urobilinogen <2.0 Ur Leukocyte Esterase 2+ H Urine RBC 5-10 H Urine WBC Tntc H Urine WBC Clumps Present H Urine Bacteria 3+ H Hyaline Casts 5-10 H Urine Mucus Mod H Urine Yeast Many H 11/06/16 11/06/16 11/06/16 11:15 11:15 11:15 WBC 7.3 RBC 3.47 L Hgb 8.8 L Hct 28.1 L MCV 81 MCH 25.3 L MCHC 31.3 L RDW 16.6 H Plt Count 238 MPV 8.5 Neut % (Auto) 67.4 Lymph % (Auto) 13.3 L Dickens % (Auto) 13.6 H Eos % (Auto) 5.4 H Baso % (Auto) 0.3 Absolute Neuts (auto) 4.89 Absolute Lymphs (auto) 0.95 PT INR APTT Puncture Site pH pCO2 pO2 HCO3 Total CO2 Base Excess FiO2 % Specimen Drawn By Sodium 144 Potassium 3.0 L Chloride 98 Carbon Dioxide 38 H Anion Gap 11 BUN 19 Creatinine 1.00 Estimated GFR (MDRD) > 60 Glucose 87 Calculated Osmolality 278 Lactic Acid 0.8 Calcium 8.8 Corrected Calcium 9.3 Total Bilirubin 0.7 AST 23 ALT 23 Alkaline Phosphatase 73 Troponin I 0.02 Grl-U-Xccrhaumysv Pept 2840 H Total Protein 7.4 Albumin 3.5 Urine Color Urine Clarity Urine pH Ur Specific Bard Urine Protein Urine Glucose (UA) Urine Ketones Urine Occult Blood Urine Nitrite Urine Bilirubin Urine Urobilinogen Ur Leukocyte Esterase Urine RBC Urine WBC Urine WBC Clumps Urine Bacteria Hyaline Casts Urine Mucus Urine Yeast <Musa Garcia - Last Filed: 11/06/16 14:41> ED Critical Care Note - Critical Care Note Total Time (mins): 30 <Musa Garcia - Last Filed: 11/06/16 14:41> - Departure Disposition: Admit IP To This Hospital Education/Counseling Given To: Patient Education/Counseling Given Regarding: Diagnosis, Treatment Decision to Admit Time: 12:42 Decision to admit date: 11/06/16 Decision to admit: from ED <Yeny Ndiaye - Last Filed: 11/06/16 12:41> - Departure Yes I personally saw and evaluated the patient. Decision to Admit Time: 12:55 Decision to admit date: 11/06/16 Decision to admit: from ED - Physician Consulted Hospitalist Time Called: 12:55 Provider Called: Priyank Feldman Time [employer] Professor Returned Call: 12:55 <Musa Garcia - Last Filed: 11/06/16 14:41> - Departure Condition: Stable Final Diagnosis: HCAP (healthcare-associated pneumonia) UTI (urinary tract infection) Qualifiers: Urinary tract infection type: acute cystitis Hematuria presence: with hematuria Qualified Code(s): N30.01 - Acute cystitis with hematuria Acute respiratory failure Qualifiers: Respiratory failure complication: hypoxia and hypercapnia Qualified Code(s): J96.01 - Acute respiratory failure with hypoxia
[2016-11-06 11:27] LABS: AUTOMATED BASOPHIL 0.3 % (0-2); AUTOMATED EOSINOPHIL 5.4 % (0-5); AUTOMATED LYMPH 13.3 % (17-44); AUTOMATED MONOCYTE 13.6 % (3-10); AUTOMATED NEUTROPHIL 67.4 % (45-76); MPV 8.5 fL (7.4-10.4)
[2016-11-06 11:38] LABS: ALLEN'S TEST PASS; BEb 16.2 (+/- 2); TCO2 43.2 MMOL/L (23-27)
[2016-11-06 11:40] LABS: ABG Draw Site LRA
[2016-11-06 11:45] LABS: PARTIAL THROMB. TIME 28.3 SEC (22-35); PT-INR 1.1
[2016-11-06 11:49] LABS: BLOOD UREA NITROGEN 19 MG/DL (9-20); CALC CORRECTED 9.3 MG/DL (8.4-10.2); CALCIUM 8.8 MG/DL (8.4-10.2); CALCULATED OSMOLALITY 278 MOs/Kg (270-290); CHLORIDE 98 mEq/L (98-107); GLUCOSE 87 MG/DL (70-99); SODIUM LEVEL 144 mEq/L (137-146); TOTAL PROTEIN 7.4 G/DL (6.3-8.2)
[2016-11-06 12:26] LABS: LEUKOCYTES/URINE 2+ (NEGATIVE); NITRITE/URINE NEG (NEGATIVE); URINE OCCULT BLOOD NEG (NEG/TRACE); WBC/URINE TNTC (0-2)
[2016-11-06] MEDS ORDERED: Levofloxacin 750 mg/150 ml D5W 750 MG/150 ML RTU IV ONE (12:38)
--- NOTE | 2016-11-06 12:38 | DIRPT ---
CLINICAL DATA: Sepsis, productive cough EXAM: PORTABLE CHEST 1 VIEW COMPARISON: 10/18/2016 FINDINGS: Cardiomediastinal silhouette is stable. There is chronic elevation of the right hemidiaphragm. There is worsening infiltrate/pneumonia in left midlung. New hazy infiltrate right perihilar. Probable small bilateral pleural effusion. Less likely asymmetric pulmonary edema. Clinical correlation is necessary. Dual lead cardiac pacemaker is unchanged in position. IMPRESSION: There is worsening infiltrate/pneumonia in left midlung. New hazy infiltrate right perihilar. Probable small bilateral pleural effusion. Less likely asymmetric pulmonary edema. Clinical correlation is necessary. Electronically Signed By: Bola Ruby M.D. On: 11/06/2016 12:35
[2016-11-06] MEDS ORDERED: CEFEPIME HYDROCHLORIDE 1 GM in D5W 100 ML IV ONE (12:39)
[2016-11-06] MEDS ORDERED: CEFEPIME HYDROCHLORIDE 2 GM in D5W 100 ML IV ONE (12:39)
[2016-11-06] MEDS ORDERED: Albuterol/Ipratropium Neb 3 ML NEB NEB PRN (13:29)
[2016-11-06] MEDS ORDERED: DEXTROSE 25 GM/50 ML PFS IV PRN (13:36)
[2016-11-06] MEDS ORDERED: GLUCAGON 1 MG VIAL SQ PRN (13:36)
[2016-11-06] MEDS ORDERED: GLUCOSE (ORAL GEL) 15 GM TUBE PO PRN (13:36)
--- NOTE | 2016-11-06 13:38 | HISTPHYS ---
- Chief Complaint sob, cough - History of Present Illness 81 yowm presented emergency room early on today for evaluation of progressive worsening difficulties breathing cough and phlegm production. Patient reports of the past 5 days he has developed progressive worsening chest congestion, chest tightness wheezes and increased dyspnea. He has been coughing and producing fair amount of thick yellowish greenish sputum. Reports low-grade fevers and chills and sweats as well. His appetite and p.o. intake have declined he has been feeling weak tired and very fatigued. Patient stays that since yesterday he has noticed increased dyspnea and early on this morning he has found himself gasping for air. Upon arrival in ED patient was in severe respiratory distress hypoxic tachypneic and tachycardic his PaO2 on 3 L was only 52. Chest x-ray show bilateral infiltrates and medical consultation was phoned in for inpatient treatment. - Medical History Cardiac History: Reports: Atrial Fibrillation (DC cardioversion x 2), Hypertension, Congestive Heart Failure, Hypercholesterolemia, Pacemaker ( Pacemaker Spring 2015 at [facility]), Valvular Heart Disease, Syncope. Denies: Heart Attack, Cardiac Catheterization (DC cardioversion x 2) Respiratory History: Reports: Pneumonia. Denies: Asthma, COPD, Emphysema GI/ History: Reports: Renal Disease, Urinary Tract Infection, Kidney Stones, Gastroesophageal Reflux, BPH (URINARY RETENTION WITH CHRONIC INDWELLING MIDDLETON CATHETER). Denies: Pancreatitis Musculoskeletal History: Reports: Arthritis, Osteoarthritis Systemic History: Reports: Anemia (iron deficiency). Denies: Cancer, Diabetes, Hyperthyroidism Neurological History: Denies: Cerebrovascular Accident, Seizures, Dementia Psychological History: Reports: Anxiety. Denies: Depression, Substance Use Disorder - Surgical History Reports: Cholecystectomy, Hernia Surgery (RIGHT GROIN), Tonsillectomy/ Adnoidectomy, Other (hemorrhoidectomy, pacer). Denies: Cardiac Catheterization (DC cardioversion x 2) - Medictions/Allergies Allergies Bpgzxex-Xua-Pxg Reductase Inhibitor Allergy (Intermediate, Verified 11/06/16 11: 27) Unknown/See Comments LEGS HURT piperacillin sodium [From Zosyn] Allergy (Verified 11/06/16 11:27) Hives* tazobactam sodium [From Zosyn] Allergy (Verified 11/06/16 11:27) Hives* Current Medication List: Reviewed Home Medications Amiodarone [Cordarone, Pacerone] 200 mg PO DAILY 12/26/14 Amlodipine [Norvasc] 10 mg PO DAILY 12/26/14 Finasteride [Proscar] 5 mg PO DAILY 12/26/14 Sennosides [Senokot] 8.6 mg PO DAILY 05/04/16 Ascorbic Acid [Vitamin C] 1,000 mg PO DAILY 08/15/16 Aspirin [Aspirin, Chewable] 81 mg PO DAILYWM #30 tablet 09/18/16 Furosemide [Lasix] 40 mg PO DAILY 10/12/16 Ibuprofen [Motrin Ib] 600 mg PO DAILY PRN 10/12/16 Probiotic Blend [Kellie Q] 1 tab PO BIDLS #60 tablet 10/16/16 - Family History Reports: Diabetes (father), Cancer (MOTHER- COLON CANCER), Cardiac Disorders (2 brothers atrial fib, CAD), Respiratory Disorders (brother- emphysema) - Social History Travel Outside of [place] in the Last 3 Months?: No Lives: With Family Smoking Status: Never smoker Social History: Denies: Substance Use Disorder - Review of Systems Constitutional: Chills, Fever, Diaphoresis, Fatigue, Loss of Appetite, Weakness , Weight loss Eyes: No Symptoms Reported Ears: No Symptoms Reported Nose: No Symptoms Reported Mouth: No Symptoms Reported Throat/Neck: No Symptoms Reported Respiratory: Cough, Shortness of Breath, Wheezing, Sputum, Dyspnea Cardiovascular: No Symptoms Reported Gastrointestinal: No Symptoms Reported, Nausea, Constipation, Heartburn Genitourinary: No Symptoms Reported, Nocturia Neurological: Gait Difficulty, Numbness, Weakness Musculoskeletal:: Arthritis Integumentary: No Symptoms Reported Allergic/Immunologic: No Symptoms Reported Hematologic: No Symptoms Reported Endocrine: No Symptoms Reported Psychiatric: Anxiety - Physical Exam Vital Signs: Initial Vitals Temperature 97.9 F 11/06/16 11:01 Pulse Rate 62 11/06/16 11:01 Respiratory Rate 24 11/06/16 11:01 Blood Pressure 169/74 11/06/16 11:01 Pulse Oxygen Saturation 83 L 11/06/16 11:01 Constitutional: Alert, Confused, Distress, Restless, Other (Visibly short of breath with audible rhonchi some wheezes.) Oriented to: Time, Person, Place - HEENT Head: Normal Eye: Normal Oropharynx: Normal ENT EAC: Normal TMJ: Normal Nose: No Symptoms Reported Respiratory: Accessory Muscle Use, Diminished, Rhonchi, Tachypnea, Wheezes Cardiovascular: Normal, Systolic murmur - GI Auscultation: Normal Palpation: Normal Tenderness: Non tender Rectal Exam: Deferred - Exam Deferred: Yes - Musculoskeletal Back: Normal Extremities: Normal Spine: limited range of motion - Integumentary Skin: Normal, Warm, Dry Lymphatics: Normal - Neurologic Memory Impaired: Normal Motor Function: Normal Cranial Nerve: Normal Cerebellar: Ataxia Mood Description: Normal, Anxious Thought: Coherent Perception: Normal - Focused CV Perfusion Exam Vital Signs: Last Vital Signs Temp 97.9 F 11/06/16 11:01 Pulse 65 11/06/16 12:30 Resp 20 11/06/16 12:30 BP 128/59 L 11/06/16 12:30 Pulse Ox 89 L 11/06/16 12:30 - Diagnostic Findings Allergies Tlcxjrr-Flb-Pix Reductase Inhibitor Allergy (Intermediate, Verified 11/06/16 11: 27) Unknown/See Comments LEGS HURT piperacillin sodium [From Zosyn] Allergy (Verified 11/06/16 11:27) Hives* tazobactam sodium [From Zosyn] Allergy (Verified 11/06/16 11:27) Hives* Last Vital Signs Temp 97.9 F 11/06/16 11:01 Pulse 65 11/06/16 12:30 Resp 20 11/06/16 12:30 BP 128/59 L 11/06/16 12:30 Pulse Ox 89 L 11/06/16 12:30 11/06/16 11:15 11/06/16 11:15 Abnormal Lab Results 11/06/16 11/06/16 11/06/16 11:15 11:15 11:15 RBC 3.47 L Hgb 8.8 L Hct 28.1 L MCH 25.3 L MCHC 31.3 L RDW 16.6 H Lymph % (Auto) 13.3 L [place] % (Auto) 13.6 H Eos % (Auto) 5.4 H PT 11.4 H pH pCO2 pO2 HCO3 Total CO2 Base Excess Potassium 3.0 L Carbon Dioxide 38 H Ckp-E-Sezgijmxdyg Pept 2840 H Urine Protein Ur Leukocyte Esterase Urine RBC Urine WBC Urine WBC Clumps Urine Bacteria Hyaline Casts Urine Mucus Urine Yeast 11/06/16 11/06/16 11:35 12:05 RBC Hgb Hct MCH MCHC RDW Lymph % (Auto) [place] % (Auto) Eos % (Auto) PT pH 7.520 H pCO2 51.0 H pO2 52.0 L HCO3 41.6 H Total CO2 43.2 H Base Excess 16.2 H Potassium Carbon Dioxide Lnn-O-Usjprlgdter Pept Urine Protein 1+ H Ur Leukocyte Esterase 2+ H Urine RBC 5-10 H Urine WBC Tntc H Urine WBC Clumps Present H Urine Bacteria 3+ H Hyaline Casts 5-10 H Urine Mucus Mod H Urine Yeast Many H Patient Name: JAMIE LARSON LOC: ED : 1935 AGE: 81 Order Date:11/06/16 Date of Service: Report # [id number] Ord Physician: Yeny Ndiaye Exam # [id number] Emergency Physician: Musa Garcia DO Exam(s): [id number] RAD/DG CHEST PORTABLE CLINICAL DATA: Sepsis, productive cough EXAM: PORTABLE CHEST 1 VIEW COMPARISON: 10/18/2016 FINDINGS: Cardiomediastinal silhouette is stable. There is chronic elevation of the right hemidiaphragm. There is worsening infiltrate/pneumonia in left midlung. New hazy infiltrate right perihilar. Probable small bilateral pleural effusion. Less likely asymmetric pulmonary edema. Clinical correlation is necessary. Dual lead cardiac pacemaker is unchanged in position. IMPRESSION: There is worsening infiltrate/pneumonia in left midlung. New hazy infiltrate right perihilar. Probable small bilateral pleural effusion. Less likely asymmetric pulmonary edema. Clinical correlation is necessary. Electronically Signed By: Bola Ruby M.D. On: 11/06/2016 12:35 Electronically Signed By: Bola Ruby MD Electronically Signed Date/Time: [id number] Dictate - Assessment (1) Acute respiratory failure with hypoxia J96.01 - ACUTE RESPIRATORY FAILURE WITH HYPOXIA Acute Present on Admission: Yes Patient be admitted to step-down unit. Supplemental O2 will be provided. Monitor pulmonary status closely obtain PA and lateral chest x-ray and ABG in the morning. (2) Bacterial pneumonia J15.9 - UNSPECIFIED BACTERIAL PNEUMONIA Acute Present on Admission: Yes continue iv abx in form of levaquin and flagyl, monitor cultures. (3) UTI (urinary tract infection) N39.0 - URINARY TRACT INFECTION, SITE NOT SPECIFIED Acute Present on Admission: Yes Qualifiers: Urinary tract infection type: acute cystitis Hematuria presence: with hematuria Indwelling urinary catheter type: I Encounter type: E Qualified Code(s): N30.01 - Acute cystitis with hematuria continue abx , await cultures. (4) Anemia D64.9 - ANEMIA, UNSPECIFIED Acute Qualifiers: Anemia type: unspecified type Iron deficiency anemia type: I Vitamin B12 deficiency anemia type: V Folate deficiency anemia type: F Bone marrow failure anemia type: B Hemolytic anemia type: H Other causes of anemia: O Qualified Code(s): D64.9 - Anemia, unspecified Monitor counts transfuse as needed indicated (5) HTN (hypertension) I10 - ESSENTIAL (PRIMARY) HYPERTENSION Acute Qualifiers: Hypertension type: essential hypertension Qualified Code(s): I10 - Essential (primary) hypertension Continue home medications. (6) PAF (paroxysmal atrial fibrillation) I48.0 - PAROXYSMAL ATRIAL FIBRILLATION Chronic Present on Admission: Yes Keep K more than 4 magnesium more than 2.. Continue amiodarone (7) Hypokalemia E87.6 - HYPOKALEMIA Acute (8) Dehydration E86.0 - DEHYDRATION Acute Present on Admission: Yes Continue gentle IV hydration (9) BPH (benign prostatic hyperplasia) N40.0 - BENIGN PROSTATIC HYPERPLASIA WITHOUT LOWER URINRY TRACT SYMP Chronic Present on Admission: Yes Qualifiers: Prostatic enlargement morphology: nodular Lower urinary tract symptom presence: symptoms present Qualified Code(s): N40.1 - Benign prostatic hyperplasia with lower urinary tract symptoms Continue home meds. Continue [place] catheter Case Care Discussed with: Patient, Family, Nursing Staff, Respiratory Therapy, Visual Effects Editor Total Time: 60 min . Critical Care: Yes Code: 291
[2016-11-06] MEDS: Albuterol/Ipratropium Neb 3 ML NEB NEB SCH ×2 (13:47→20:23)
[2016-11-06] MEDS: NS 1,000 ML IV SCH (15:06)
[2016-11-06] MEDS: Metronidazole 500 mg/100 ml 500 MG/100 ML RTU IV SCH ×2 (15:37→22:51)
[2016-11-06] MEDS ORDERED: Vaccine Screening Complete SCH (17:00)
[2016-11-06] MEDS ORDERED: POTASSIUM CHLORIDE 20 MEQ TAB PO ONE (17:00)
[2016-11-06] MEDS: KCl 10 mEq/100 ml Premix (Run) 10 MEQ/100 ML RTU IV SCH ×4 (17:33→21:48)
[2016-11-06] MEDS: ENOXAPARIN 40 MG/0.4 ML PFS SQ SCH (17:33)
[2016-11-06] MEDS: METHYLPREDNISOLONE 125 MG/2 ML VIAL IV SCH (17:34)
[2016-11-06] MEDS: PROBIOTIC BLEND TAB PO SCH (17:34)
[2016-11-06] MEDS: REGULAR INSULIN 100 UNITS/ML - 3 ML VIAL SQ SCH ×2 (17:42→23:58)
[2016-11-06] MEDS: GUAIFENESIN 600 MG LA TAB PO SCH (20:36)
[2016-11-07] MEDS: TEMAZEPAM 15 MG CAP PO PRN ×2 (01:22→22:50)
[2016-11-07] MEDS: Albuterol/Ipratropium Neb 3 ML NEB NEB SCH ×4 (02:32→19:59)
[2016-11-07 04:07] LABS: ALLEN'S TEST PASS; BEb 10.3 (+/- 2); TCO2 35.6 MMOL/L (23-27)
[2016-11-07 04:09] LABS: ABG Draw Site Right Radial; ABG Draw Tech BKL
[2016-11-07] MEDS: Metronidazole 500 mg/100 ml 500 MG/100 ML RTU IV SCH (05:28)
[2016-11-07] MEDS: METHYLPREDNISOLONE 125 MG/2 ML VIAL IV SCH ×4 (05:28→17:16)
[2016-11-07] MEDS: REGULAR INSULIN 100 UNITS/ML - 3 ML VIAL SQ SCH ×3 (05:28→17:48)
[2016-11-07 05:53] LABS: AUTOMATED BASOPHIL 0.1 % (0-2); AUTOMATED LYMPH 4.1 % (17-44); AUTOMATED MONOCYTE 1.9 % (3-10); AUTOMATED NEUTROPHIL 93.9 % (45-76); MPV 9.3 fL (7.4-10.4)
[2016-11-07 06:05] LABS: BLOOD UREA NITROGEN 24 MG/DL (9-20); CALCIUM 8.7 MG/DL (8.4-10.2); CALCULATED OSMOLALITY 275 MOs/Kg (270-290); CHLORIDE 98 mEq/L (98-107); GLUCOSE 136 MG/DL (70-99); SODIUM LEVEL 140 mEq/L (137-146)
--- NOTE | 2016-11-07 07:37 | DIRPT ---
CLINICAL DATA: Respiratory failure. EXAM: CHEST 2 VIEW COMPARISON: 11/06/2016. FINDINGS: Decreased airspace opacity in the left mid and lower lung zones and right lower lung zone. The cardiac silhouette remains borderline enlarged. The pulmonary vasculature is mildly prominent. Thoracic spine degenerative changes. Cervical spine fixation hardware. Stable left subclavian bipolar pacemaker leads. IMPRESSION: Improving alveolar edema and atelectasis in the lower lung zones bilaterally and left perihilar region. Underlying pneumonia cannot be excluded on the left. Electronically Signed By: Tyrone Rowland M.D. On: 11/07/2016 07:34
[2016-11-07] MEDS: GUAIFENESIN 600 MG LA TAB PO SCH ×2 (08:02→20:20)
[2016-11-07] MEDS: ASPIRIN (CHEWABLE) 81 MG TAB PO SCH (08:02)
[2016-11-07] MEDS: FINASTERIDE 5 MG TAB PO SCH (08:02)
[2016-11-07] MEDS: SENNA CONCENTRATE TAB PO SCH (08:02)
[2016-11-07] MEDS: FUROSEMIDE 40 MG TAB PO SCH (08:02)
[2016-11-07] MEDS: AMLODIPINE 10 MG TAB PO SCH (08:02)
[2016-11-07] MEDS: AMIODARONE 200 MG TAB PO SCH (08:03)
--- NOTE | 2016-11-07 08:33 | GENMEDPROG ---
Subjective Note: Patient in bed responsive follows commands. Oriented and interactive. Still short of breath coughing producing fair amount thick sputum. Denies any hemoptysis. Overall patient stays that breathing has improved since admission. Notes Reviewed: Yes Events from last night noted and discussed with Clinical Staff Current Medication List: Reviewed Currently: Reports: Cough, Wheezing, ASHER, SOB, Sputum, Reflux Sx DVT Prophylaxis: Yes - Physical Examination Vital Signs and I&O: Last Vital Signs Temp 97.8 F 11/07/16 07:24 Pulse 70 11/07/16 05:32 Resp 18 11/07/16 04:00 BP 123/60 11/07/16 04:00 Pulse Ox 91 11/07/16 04:00 Oxygen Pulse Oxygen Saturation 91 O2 Device Nasal Cannula Oxygen Flow Rate 3 Fraction of Inspired Oxygen ( 40 FIO2) Intake & Output 11/04/16 11/05/16 11/06/16 11/07/16 23:59 23:59 23:59 23:59 Intake Total 927 721 Output Total 425 225 Balance 502 496 Patient's weight 73.028 kg General: Alert, Oriented x3, Cooperative, Mild distress HEENT: Normal, PERRLA, EOMI, Anicteric Sclera Neck: Non-tender, Normal Trachea alignment, Limited range of motion Lymphatics: Normal Respiratory: Diminished, Rhonchi, Tachypnea, Wheezes Cardiovascular: Regular rate, Normal S1, Normal S2, Murmurs GI: Normal bowel sounds, Soft, Non tender, No hepatospenomegaly, No masses Extremities/Musculoskeletal: Edema, DJD Skin: Warm,Dry and Intact, No rashes, No breakdown Neurological: Normal speech, Cranial nerves 3-12 NL Psych/Mental Status: Anxious Lab/DI/Studies Reviewed: Allergies Hktrybf-Oho-Euu Reductase Inhibitor Allergy (Intermediate, Verified 11/06/16 11: 27) Unknown/See Comments LEGS HURT piperacillin sodium [From Zosyn] Allergy (Verified 11/06/16 11:27) Hives* tazobactam sodium [From Zosyn] Allergy (Verified 11/06/16 11:27) Hives* 11/07/16 05:20 11/07/16 05:20 Abnormal Lab Results 11/06/16 11/06/16 11/06/16 11:15 11:15 11:15 RBC 3.47 L Hgb 8.8 L Hct 28.1 L MCH 25.3 L MCHC 31.3 L RDW 16.6 H Neut % (Auto) Lymph % (Auto) 13.3 L [place] % (Auto) 13.6 H Eos % (Auto) 5.4 H Absolute Lymphs (auto) PT 11.4 H pH pCO2 pO2 HCO3 Total CO2 Base Excess Potassium 3.0 L Carbon Dioxide 38 H BUN Glucose POC Capillary Glucose Epp-X-Vznnwjbmxsu Pept 2840 H Urine Protein Ur Leukocyte Esterase Urine RBC Urine WBC Urine WBC Clumps Urine Bacteria Hyaline Casts Urine Mucus Urine Yeast Crossmatch 11/06/16 11/06/16 11/06/16 11:35 12:05 17:41 RBC Hgb Hct MCH MCHC RDW Neut % (Auto) Lymph % (Auto) [place] % (Auto) Eos % (Auto) Absolute Lymphs (auto) PT pH 7.520 H pCO2 51.0 H pO2 52.0 L HCO3 41.6 H Total CO2 43.2 H Base Excess 16.2 H Potassium Carbon Dioxide BUN Glucose POC Capillary Glucose 176 H Hyi-H-Aprdqjycgdp Pept Urine Protein 1+ H Ur Leukocyte Esterase 2+ H Urine RBC 5-10 H Urine WBC Tntc H Urine WBC Clumps Present H Urine Bacteria 3+ H Hyaline Casts 5-10 H Urine Mucus Mod H Urine Yeast Many H Crossmatch 11/06/16 11/07/16 11/07/16 23:55 04:00 05:18 RBC Hgb Hct MCH MCHC RDW Neut % (Auto) Lymph % (Auto) [place] % (Auto) Eos % (Auto) Absolute Lymphs (auto) PT pH 7.520 H pCO2 pO2 58.0 L HCO3 34.3 H Total CO2 35.6 H Base Excess 10.3 H Potassium Carbon Dioxide BUN Glucose POC Capillary Glucose 182 H 149 H Xxi-A-Gqsffasqoeh Pept Urine Protein Ur Leukocyte Esterase Urine RBC Urine WBC Urine WBC Clumps Urine Bacteria Hyaline Casts Urine Mucus Urine Yeast Crossmatch 11/07/16 11/07/16 11/07/16 05:20 05:20 08:29 RBC 3.00 L Hgb 7.7 L D Hct 24.2 L MCH 25.8 L MCHC 31.8 L RDW 16.9 H Neut % (Auto) 93.9 H Lymph % (Auto) 4.1 L [place] % (Auto) 1.9 L Eos % (Auto) Absolute Lymphs (auto) 0.24 L PT pH pCO2 pO2 HCO3 Total CO2 Base Excess Potassium Carbon Dioxide BUN 24 H Glucose 136 H POC Capillary Glucose Syn-C-Clgvgrsebjb Pept Urine Protein Ur Leukocyte Esterase Urine RBC Urine WBC Urine WBC Clumps Urine Bacteria Hyaline Casts Urine Mucus Urine Yeast Crossmatch See Detail Last Vital Signs Temp 97.8 F 11/07/16 07:24 Pulse 70 11/07/16 05:32 Resp 18 11/07/16 04:00 BP 123/60 11/07/16 04:00 Pulse Ox 91 11/07/16 04:00 Patient Name: JAMIE LARSON LOC: ICU : 1935 AGE: 81 Order Date:11/06/16 Date of Service: Report # [id number] Ord Physician: Keyon Watson MD Exam # [id number] Emergency Physician: Musa Garcia DO Exam(s): [id number] RAD/DG CHEST 2V CLINICAL DATA: Respiratory failure. EXAM: CHEST 2 VIEW COMPARISON: 11/06/2016. FINDINGS: Decreased airspace opacity in the left mid and lower lung zones and right lower lung zone. The cardiac silhouette remains borderline enlarged. The pulmonary vasculature is mildly prominent. Thoracic spine degenerative changes. Cervical spine fixation hardware. Stable left subclavian bipolar pacemaker leads. IMPRESSION: Improving alveolar edema and atelectasis in the lower lung zones bilaterally and left perihilar region. Underlying pneumonia cannot be excluded on the left. Electronically Signed By: Tyrone Rowland M.D. On: 11/07/2016 07:34 Electronically Signed By: Tyrone Rowland MD Electronically Signed Date/Time: [id number] Dictate Date/Time: 11/07/16 0732 Technologist - Assessment (1) Acute respiratory failure with hypoxia Acute J96.01 - ACUTE RESPIRATORY FAILURE WITH HYPOXIA Comment/Plan: Continue O2 nebs and pulmonary toilet. Continue mucolytics. Monitor pulmonary status. Patient remains symptomatic and hypoxic. (2) Bacterial pneumonia Acute J15.9 - UNSPECIFIED BACTERIAL PNEUMONIA Comment/Plan: Continue IV antibiotics in the form of Levaquin and imipenem.. Await cultures (3) UTI (urinary tract infection) Acute N39.0 - URINARY TRACT INFECTION, SITE NOT SPECIFIED Qualifiers: Urinary tract infection type: acute cystitis Hematuria presence: with hematuria Indwelling urinary catheter type: I Encounter type: E Qualified Code(s): N30.01 - Acute cystitis with hematuria Comment/Plan: continue abx , await cultures. (4) Anemia Acute D64.9 - ANEMIA, UNSPECIFIED Qualifiers: Anemia type: unspecified type Iron deficiency anemia type: I Vitamin B12 deficiency anemia type: V Folate deficiency anemia type: F Bone marrow failure anemia type: B Hemolytic anemia type: H Other causes of anemia: O Qualified Code(s): D64.9 - Anemia, unspecified Comment/Plan: Transfuse 2 units of pooled red blood cells today. Monitor counts (5) HTN (hypertension) Acute I10 - ESSENTIAL (PRIMARY) HYPERTENSION Qualifiers: Hypertension type: essential hypertension Qualified Code(s): I10 - Essential (primary) hypertension Comment/Plan: Continue home medications. (6) PAF (paroxysmal atrial fibrillation) Chronic I48.0 - PAROXYSMAL ATRIAL FIBRILLATION Comment/Plan: Keep K more than 4 magnesium more than 2.. Continue amiodarone (7) Hypokalemia Acute E87.6 - HYPOKALEMIA (8) Dehydration Acute E86.0 - DEHYDRATION Comment/Plan: Continue gentle IV hydration (9) BPH (benign prostatic hyperplasia) Chronic N40.0 - BENIGN PROSTATIC HYPERPLASIA WITHOUT LOWER URINRY TRACT SYMP Qualifiers: Prostatic enlargement morphology: nodular Lower urinary tract symptom presence: symptoms present Qualified Code(s): N40.1 - Benign prostatic hyperplasia with lower urinary tract symptoms Comment/Plan: Continue home meds. Continue Brown catheter (10) Candiduria Acute B37.49 - OTHER UROGENITAL CANDIDIASIS Comment/Plan: Patient will receive Diflucan x3 days Case Care Discussed with: Patient, Family, Nursing Staff, Respiratory Therapy, Wave Solder Offbearer Education/Counseling Given To: Patient Education/Counseling Given Regarding: Diagnosis, Treatment, Prognosis, Follow Up Total Time: 55 min . Critical Care: Yes Code: 291
[2016-11-07] MEDS ORDERED: Fluconazole 200 mg in NS 200 MG/100 ML ML IV ONE (09:00)
[2016-11-07] MEDS: PANTOPRAZOLE 40 MG TAB PO SCH (10:01)
[2016-11-07] MEDS: IMIPENEM CILASTATIN 500 MG in D5W 100 ML IV SCH ×2 (11:18→17:15)
[2016-11-07] MEDS: PROBIOTIC BLEND TAB PO SCH ×2 (12:30→17:16)
[2016-11-07] MEDS: ASCORBIC ACID 500 MG TAB PO SCH (12:30)
[2016-11-07] MEDS: Levofloxacin 750 mg/150 ml D5W 750 MG/150 ML RTU IV SCH (12:32)
[2016-11-07] MEDS: FUROSEMIDE 40 MG/4 ML VIAL IV SCH ×2 (12:37→17:16)
[2016-11-07] MEDS: NS 1,000 ML IV SCH (14:56)
[2016-11-07] MEDS: ENOXAPARIN 40 MG/0.4 ML PFS SQ SCH (17:16)
[2016-11-08] MEDS: METHYLPREDNISOLONE 125 MG/2 ML VIAL IV SCH ×2 (00:35→05:26)
[2016-11-08] MEDS: IMIPENEM CILASTATIN 500 MG in D5W 100 ML IV SCH ×3 (00:35→17:11)
[2016-11-08] MEDS: REGULAR INSULIN 100 UNITS/ML - 3 ML VIAL SQ SCH ×4 (00:42→16:23)
[2016-11-08] MEDS: Albuterol/Ipratropium Neb 3 ML NEB NEB SCH ×4 (01:35→20:06)
[2016-11-08] MEDS: PANTOPRAZOLE 40 MG TAB PO SCH (05:26)
[2016-11-08] MEDS: NS 1,000 ML IV SCH (05:28)
[2016-11-08 05:58] LABS: BLOOD UREA NITROGEN 33 MG/DL (9-20); CALCIUM 8.8 MG/DL (8.4-10.2); CALCULATED OSMOLALITY 278 MOs/Kg (270-290); CHLORIDE 99 mEq/L (98-107); GLUCOSE 132 MG/DL (70-99); SODIUM LEVEL 140 mEq/L (137-146)
[2016-11-08 06:06] LABS: MPV 9.3 fL (7.4-10.4)
[2016-11-08 08:25] LABS: SEG NEUTROPHIL 98 % (45-76)
[2016-11-08] MEDS: ASPIRIN (CHEWABLE) 81 MG TAB PO SCH (08:56)
[2016-11-08] MEDS: AMIODARONE 200 MG TAB PO SCH (08:57)
[2016-11-08] MEDS: FLUCONAZOLE 100 MG TAB PO SCH (08:57)
[2016-11-08] MEDS: GUAIFENESIN 600 MG LA TAB PO SCH ×2 (08:57→20:04)
[2016-11-08] MEDS: FUROSEMIDE 40 MG TAB PO SCH ×2 (08:57→15:49)
[2016-11-08] MEDS: FINASTERIDE 5 MG TAB PO SCH (08:58)
[2016-11-08] MEDS: SENNA CONCENTRATE TAB PO SCH (08:58)
[2016-11-08] MEDS: AMLODIPINE 10 MG TAB PO SCH (08:59)
--- NOTE | 2016-11-08 09:39 | GENMEDPROG ---
Subjective Note: Patient in bed responsive follows commands. Breathing better, still coughing producing small amount of sputum, no hemoptysis. Still dyspneic with minimal physical exertion. Notes Reviewed: Yes Events from last night noted and discussed with Clinical Staff Current Medication List: Reviewed Currently: Reports: Cough, Wheezing, ASHER, SOB, Sputum, Reflux Sx DVT Prophylaxis: Yes - Physical Examination Vital Signs and I&O: Last Vital Signs Temp 96.8 F L 11/08/16 07:53 Pulse 72 11/08/16 07:53 Resp 18 11/08/16 07:53 BP 115/52 L 11/08/16 07:53 Pulse Ox 98 11/08/16 08:10 Oxygen Pulse Oxygen Saturation 98 O2 Device Nasal Cannula Oxygen Flow Rate 4 Fraction of Inspired Oxygen ( 40 FIO2) Intake & Output 11/05/16 11/06/16 11/07/16 11/08/16 23:59 23:59 23:59 23:59 Intake Total 927 2717 520 Output Total 425 2275 400 Balance 502 442 120 Patient's weight 73.028 kg 73.663 kg General: Alert, Oriented x3, Cooperative, Mild distress HEENT: Normal, PERRLA, EOMI, Anicteric Sclera Neck: Non-tender, Normal Trachea alignment, Limited range of motion Lymphatics: Normal Respiratory: Diminished, Rhonchi, Tachypnea, Wheezes Cardiovascular: Regular rate, Normal S1, Normal S2, Murmurs GI: Normal bowel sounds, Soft, Non tender, No hepatospenomegaly, No masses Extremities/Musculoskeletal: Edema, DJD Skin: Warm,Dry and Intact, No rashes, No breakdown Neurological: Normal speech, Cranial nerves 3-12 NL Psych/Mental Status: Anxious Lab/DI/Studies Reviewed: Allergies Ocjwakf-Lzc-War Reductase Inhibitor Allergy (Intermediate, Verified 11/06/16 11: 27) Unknown/See Comments LEGS HURT piperacillin sodium [From Zosyn] Allergy (Verified 11/06/16 11:27) Hives* tazobactam sodium [From Zosyn] Allergy (Verified 11/06/16 11:27) Hives* 11/08/16 05:20 11/08/16 05:20 Microbiology 11/06/16 12:00 Sputum Gram Stain - Final 11/06/16 12:05 Urine - Clean Catch - Midstream Urine Culture - Final Yeast 11/06/16 15:35 Nares Nasal Screen MRSA (PCR)(CHLOÉ) - Final NEGATIVE for MRSA DNA Last Vital Signs Temp 96.8 F L 11/08/16 07:53 Pulse 72 11/08/16 07:53 Resp 18 11/08/16 07:53 BP 115/52 L 11/08/16 07:53 Pulse Ox 98 11/08/16 08:10 - Assessment (1) Acute respiratory failure with hypoxia Acute J96.01 - ACUTE RESPIRATORY FAILURE WITH HYPOXIA Comment/Plan: Slow clinical improvement on maximal pulmonary therapy.. Weaned off oxygen as tolerated. Continue aggressive pulmonary toilet. (2) Bacterial pneumonia Acute J15.9 - UNSPECIFIED BACTERIAL PNEUMONIA Comment/Plan: Continue IV antibiotics in the form of Levaquin and imipenem.. Await cultures (3) UTI (urinary tract infection) Acute N39.0 - URINARY TRACT INFECTION, SITE NOT SPECIFIED Qualifiers: Urinary tract infection type: acute cystitis Hematuria presence: with hematuria Indwelling urinary catheter type: I Encounter type: E Qualified Code(s): N30.01 - Acute cystitis with hematuria Comment/Plan: continue abx , continue Diflucan (4) Anemia Acute D64.9 - ANEMIA, UNSPECIFIED Qualifiers: Anemia type: unspecified type Iron deficiency anemia type: I Vitamin B12 deficiency anemia type: V Folate deficiency anemia type: F Bone marrow failure anemia type: B Hemolytic anemia type: H Other causes of anemia: O Qualified Code(s): D64.9 - Anemia, unspecified Comment/Plan: Hemoglobin stable after blood transfusion. (5) HTN (hypertension) Acute I10 - ESSENTIAL (PRIMARY) HYPERTENSION Qualifiers: Hypertension type: essential hypertension Qualified Code(s): I10 - Essential (primary) hypertension Comment/Plan: Continue home medications. (6) PAF (paroxysmal atrial fibrillation) Chronic I48.0 - PAROXYSMAL ATRIAL FIBRILLATION Comment/Plan: Keep K more than 4 magnesium more than 2.. Continue amiodarone (7) Hypokalemia Acute E87.6 - HYPOKALEMIA Comment/Plan: Replace and monitor (8) Dehydration Resolved E86.0 - DEHYDRATION Comment/Plan: Continue gentle IV hydration (9) BPH (benign prostatic hyperplasia) Chronic N40.0 - BENIGN PROSTATIC HYPERPLASIA WITHOUT LOWER URINRY TRACT SYMP Qualifiers: Prostatic enlargement morphology: nodular Lower urinary tract symptom presence: symptoms present Qualified Code(s): N40.1 - Benign prostatic hyperplasia with lower urinary tract symptoms Comment/Plan: Continue home meds. Continue Brown catheter (10) Candiduria Acute B37.49 - OTHER UROGENITAL CANDIDIASIS Comment/Plan: Patient will receive Diflucan x3 days Case Care Discussed with: Patient, Nursing Staff, Physical Therapy, Machine Molder Squeeze Education/Counseling Given To: Patient Education/Counseling Given Regarding: Diagnosis, Treatment, Prognosis, Follow Up Total Time: 45 min . Critical Care: No Code: 22073 (12+)
[2016-11-08] MEDS: ASCORBIC ACID 500 MG TAB PO SCH (12:29)
[2016-11-08] MEDS: PROBIOTIC BLEND TAB PO SCH ×2 (12:29→17:11)
[2016-11-08] MEDS: Levofloxacin 750 mg/150 ml D5W 750 MG/150 ML RTU IV SCH (12:29)
[2016-11-08] MEDS: METHYLPREDNISOLONE 40 MG/1 ML VIAL IV SCH ×2 (15:50→21:12)
[2016-11-08] MEDS: POTASSIUM CHLORIDE 20 MEQ TAB PO SCH (17:11)
[2016-11-08] MEDS: ENOXAPARIN 40 MG/0.4 ML PFS SQ SCH (17:12)
[2016-11-09] MEDS: REGULAR INSULIN 100 UNITS/ML - 3 ML VIAL SQ SCH ×5 (00:29→23:40)
[2016-11-09] MEDS: Albuterol/Ipratropium Neb 3 ML NEB NEB SCH ×4 (01:30→20:25)
[2016-11-09] MEDS: IMIPENEM CILASTATIN 500 MG in D5W 100 ML IV SCH ×3 (01:34→17:27)
[2016-11-09] MEDS: NS 1,000 ML IV SCH ×2 (01:34→20:22)
[2016-11-09 05:39] VITALS: BMI 22.1
[2016-11-09] MEDS: METHYLPREDNISOLONE 40 MG/1 ML VIAL IV SCH ×3 (05:42→20:22)
[2016-11-09] MEDS: PANTOPRAZOLE 40 MG TAB PO SCH (05:42)
[2016-11-09 06:45] LABS: BLOOD UREA NITROGEN 39 MG/DL (9-20); CALCIUM 8.6 MG/DL (8.4-10.2); CALCULATED OSMOLALITY 279 MOs/Kg (270-290); CHLORIDE 101 mEq/L (98-107); GLUCOSE 136 MG/DL (70-99); SODIUM LEVEL 139 mEq/L (137-146)
[2016-11-09] MEDS: AMIODARONE 200 MG TAB PO SCH (09:10)
[2016-11-09] MEDS: FINASTERIDE 5 MG TAB PO SCH (09:10)
[2016-11-09] MEDS: GUAIFENESIN 600 MG LA TAB PO SCH ×2 (09:10→20:21)
[2016-11-09] MEDS: POTASSIUM CHLORIDE 20 MEQ TAB PO SCH ×2 (09:10→17:27)
[2016-11-09] MEDS: ASPIRIN (CHEWABLE) 81 MG TAB PO SCH (09:10)
[2016-11-09] MEDS: FUROSEMIDE 40 MG TAB PO SCH ×2 (09:10→17:27)
[2016-11-09] MEDS: FLUCONAZOLE 100 MG TAB PO SCH (09:10)
[2016-11-09] MEDS: AMLODIPINE 10 MG TAB PO SCH (09:10)
[2016-11-09] MEDS: SENNA CONCENTRATE TAB PO SCH (13:06)
[2016-11-09] MEDS: ASCORBIC ACID 500 MG TAB PO SCH (13:06)
[2016-11-09] MEDS: PROBIOTIC BLEND TAB PO SCH ×2 (13:06→17:27)
[2016-11-09] MEDS: Levofloxacin 750 mg/150 ml D5W 750 MG/150 ML RTU IV SCH (13:06)
[2016-11-09] MEDS: ENOXAPARIN 40 MG/0.4 ML PFS SQ SCH (17:27)
--- NOTE | 2016-11-09 17:56 | GENMEDPROG ---
Subjective Note: Patient in chair responsive follows commands. Breathing better still mildly dyspneic with physical exertion denies any hemoptysis. Notes Reviewed: Yes Events from last night noted and discussed with Clinical Staff Current Medication List: Reviewed Currently: Reports: Cough, Wheezing, ASHER, SOB, Sputum, Reflux Sx DVT Prophylaxis: Yes - Physical Examination Vital Signs and I&O: Last Vital Signs Temp 98.0 F 11/09/16 16:28 Pulse 78 11/09/16 16:28 Resp 18 11/09/16 16:28 BP 128/54 L 11/09/16 16:28 Pulse Ox 98 11/09/16 16:28 Oxygen Pulse Oxygen Saturation 98 O2 Device Nasal Cannula Oxygen Flow Rate 4 Fraction of Inspired Oxygen ( 40 FIO2) Intake & Output 11/06/16 11/07/16 11/08/16 11/09/16 23:59 23:59 23:59 23:59 Intake Total 927 2717 2642 1176 Output Total 425 2275 1000 1600 Balance 620 948 8724 -424 Patient's weight 73.028 kg 73.663 kg 74.162 kg General: Alert, Oriented x3, Cooperative, Mild distress HEENT: Normal, PERRLA, EOMI, Anicteric Sclera Neck: Non-tender, Normal Trachea alignment, Limited range of motion Lymphatics: Normal Respiratory: Diminished, Rhonchi, Tachypnea, Wheezes Cardiovascular: Regular rate, Normal S1, Normal S2, Murmurs GI: Normal bowel sounds, Soft, Non tender, No hepatospenomegaly, No masses Extremities/Musculoskeletal: Edema, DJD Skin: Warm,Dry and Intact, No rashes, No breakdown Neurological: Normal speech, Cranial nerves 3-12 NL Psych/Mental Status: Anxious Lab/DI/Studies Reviewed: 11/08/16 05:20 11/09/16 05:35 - Assessment (1) Acute respiratory failure with hypoxia Acute J96.01 - ACUTE RESPIRATORY FAILURE WITH HYPOXIA Comment/Plan: Slow clinical improvement on maximal pulmonary therapy.. Weaned off oxygen as tolerated. Continue aggressive pulmonary toilet. Increase activity (2) Bacterial pneumonia Acute J15.9 - UNSPECIFIED BACTERIAL PNEUMONIA Comment/Plan: Continue IV antibiotics in the form of Levaquin and imipenem.. Await cultures (3) UTI (urinary tract infection) Acute N39.0 - URINARY TRACT INFECTION, SITE NOT SPECIFIED Qualifiers: Urinary tract infection type: acute cystitis Hematuria presence: with hematuria Indwelling urinary catheter type: I Encounter type: E Qualified Code(s): N30.01 - Acute cystitis with hematuria Comment/Plan: continue abx , continue Diflucan (4) Anemia Acute D64.9 - ANEMIA, UNSPECIFIED Qualifiers: Anemia type: unspecified type Iron deficiency anemia type: I Vitamin B12 deficiency anemia type: V Folate deficiency anemia type: F Bone marrow failure anemia type: B Hemolytic anemia type: H Other causes of anemia: O Qualified Code(s): D64.9 - Anemia, unspecified Comment/Plan: Hemoglobin stable after blood transfusion. (5) HTN (hypertension) Acute I10 - ESSENTIAL (PRIMARY) HYPERTENSION Qualifiers: Hypertension type: essential hypertension Qualified Code(s): I10 - Essential (primary) hypertension Comment/Plan: Continue home medications. (6) PAF (paroxysmal atrial fibrillation) Chronic I48.0 - PAROXYSMAL ATRIAL FIBRILLATION Comment/Plan: Keep K more than 4 magnesium more than 2.. Continue amiodarone (7) Hypokalemia Acute E87.6 - HYPOKALEMIA Comment/Plan: Replace and monitor (8) Dehydration Resolved E86.0 - DEHYDRATION Comment/Plan: Continue gentle IV hydration (9) BPH (benign prostatic hyperplasia) Chronic N40.0 - BENIGN PROSTATIC HYPERPLASIA WITHOUT LOWER URINRY TRACT SYMP Qualifiers: Prostatic enlargement morphology: nodular Lower urinary tract symptom presence: symptoms present Qualified Code(s): N40.1 - Benign prostatic hyperplasia with lower urinary tract symptoms Comment/Plan: Continue home meds. Continue Brown catheter (10) Candiduria Acute B37.49 - OTHER UROGENITAL CANDIDIASIS Comment/Plan: Patient will receive Diflucan x3 days Case Care Discussed with: Patient, Nursing Staff, Transfer Specialist Education/Counseling Given To: Patient Education/Counseling Given Regarding: Diagnosis, Treatment, Prognosis, Follow Up Total Time: 45 min Critical Care: No Code: 61095 (12+)
[2016-11-10] MEDS: IMIPENEM CILASTATIN 500 MG in D5W 100 ML IV SCH ×2 (00:58→11:04)
[2016-11-10] MEDS: Albuterol/Ipratropium Neb 3 ML NEB NEB SCH ×2 (02:13→08:29)
[2016-11-10] MEDS: PANTOPRAZOLE 40 MG TAB PO SCH (05:13)
[2016-11-10] MEDS: METHYLPREDNISOLONE 40 MG/1 ML VIAL IV SCH (05:14)
[2016-11-10] MEDS: REGULAR INSULIN 100 UNITS/ML - 3 ML VIAL SQ SCH ×2 (05:14→13:47)
[2016-11-10 08:00] VITALS: BP 114/54; TEMP 98
[2016-11-10] MEDS: GUAIFENESIN 600 MG LA TAB PO SCH (08:06)
[2016-11-10] MEDS: FINASTERIDE 5 MG TAB PO SCH (08:06)
[2016-11-10] MEDS: AMIODARONE 200 MG TAB PO SCH (08:07)
[2016-11-10] MEDS: PROBIOTIC BLEND TAB PO SCH (08:07)
[2016-11-10] MEDS: AMLODIPINE 10 MG TAB PO SCH (08:07)
[2016-11-10] MEDS: FUROSEMIDE 40 MG TAB PO SCH (08:07)
[2016-11-10] MEDS: ASPIRIN (CHEWABLE) 81 MG TAB PO SCH (08:07)
[2016-11-10] MEDS: ASCORBIC ACID 500 MG TAB PO SCH (08:07)
[2016-11-10] MEDS: POTASSIUM CHLORIDE 20 MEQ TAB PO SCH (08:07)
[2016-11-10] MEDS: SENNA CONCENTRATE TAB PO SCH (08:09)
[2016-11-10 08:28] VITALS: PULSE 70
--- NOTE | 2016-11-10 10:06 | PCM.DCS92 ---
- Final/Secondary Discharge Diagnosis (1) Acute respiratory failure with hypoxia Resolved J96.01 - ACUTE RESPIRATORY FAILURE WITH HYPOXIA Present on Admission: Yes Comment: Clinically improved and stable for discharge.. Continue O2 2-3l nasal cannula. (2) Bacterial pneumonia Acute J15.9 - UNSPECIFIED BACTERIAL PNEUMONIA Present on Admission: Yes Comment: Continue finish course of Levaquin. (3) UTI (urinary tract infection) Acute N39.0 - URINARY TRACT INFECTION, SITE NOT SPECIFIED Present on Admission: Yes acute cystitis with hematuria I E N30.01 - Acute cystitis with hematuria Comment: Received Diflucan. (4) Anemia Acute D64.9 - ANEMIA, UNSPECIFIED unspecified type I V F B H O D64.9 - Anemia, unspecified Comment: Hemoglobin stable after blood transfusion. (5) HTN (hypertension) Acute I10 - ESSENTIAL (PRIMARY) HYPERTENSION essential hypertension I10 - Essential (primary) hypertension Comment: Continue home medications. (6) PAF (paroxysmal atrial fibrillation) Chronic I48.0 - PAROXYSMAL ATRIAL FIBRILLATION Present on Admission: Yes Comment: Keep K more than 4 magnesium more than 2.. Continue amiodarone (7) Hypokalemia Resolved E87.6 - HYPOKALEMIA Present on Admission: Yes Comment: Replace and monitor (8) Dehydration Resolved E86.0 - DEHYDRATION Present on Admission: Yes Comment: Continue gentle IV hydration (9) BPH (benign prostatic hyperplasia) Chronic N40.0 - BENIGN PROSTATIC HYPERPLASIA WITHOUT LOWER URINRY TRACT SYMP Present on Admission: Yes nodular symptoms present N40.1 - Benign prostatic hyperplasia with lower urinary tract symptoms Comment: Continue home meds. Continue Brown catheter (10) Candiduria Resolved B37.49 - OTHER UROGENITAL CANDIDIASIS Present on Admission: Yes Comment: Patient will receive Diflucan x3 days Discharge Disposition: Discharge w/ Home Health Discharge Condition: Stable Cognitive Discharge Status: Unimpaired Fuctional Discharge Status: Walker Assistance Physician Follow up/Referrals: Earl Fitch II, MD [Primary Care Provider] - 3-4 Days Home Medications / New Prescriptions: New Albuterol/Ipratropium Neb [Duoneb] 3 ml NEB Q6H #120 nebu Furosemide [Lasix] 40 mg PO BID #120 tab Levofloxacin [Levaquin] 750 mg PO DAILY #7 tablet Guaifenesin [Mucinex] 1,200 mg PO BID #20 tbmp.12hr Potassium Chloride 40 meq PO BID #120 tablet.er Prednisone 10 mg PO DAILY #20 tab.ds.pk Continue Finasteride [Proscar] 5 mg PO DAILY Amlodipine [Norvasc] 10 mg PO DAILY Amiodarone [Cordarone, Pacerone] 200 mg PO DAILY Sennosides [Senokot] 8.6 mg PO DAILY Ascorbic Acid [Vitamin C] 1,000 mg PO DAILY Aspirin [Aspirin, Chewable] 81 mg PO DAILYWM #30 tablet Probiotic Blend [Kellie Q] 1 tab PO BIDLS #60 tablet Discontinued Furosemide [Lasix] 40 mg PO DAILY Ibuprofen [Motrin Ib] 600 mg PO DAILY PRN PRN Reason: Pain O2 Device: Nasal Cannula Oxygen to be used after Discharge: Continuous Diet at Discharge: Heart Healthy, Low Salt, High Fiber Activity: As Tolerated, Limited Call Office For: Worsening Symptoms, Fever over 101 F Discontinue use of:: Alcohol, All Illegal Substances, All Types of Tobacco - DC Summary Notes Hospital Course Note:: Discharge summary on patient named JAMIE LARSON admitted to [facility] on 11/06/16 by Keyon Watson MD. Date of discharge is []. Patient was initially brought to emergency room on November 06 for evaluation worsening difficulties breathing cough phlegm production chest tightness and wheezes. He has also reported worsening leg swelling PND and orthopnea. Please refer the admission for further details. Upon arrival in ED patient was found to be in severe respiratory distress hypoxic tachypneic and tachycardic his PaO2 was only 52 on 3 L nasal cannula. X-ray of the chest show bilateral infiltrates. Patient was initially admitted to ICU. High-flow supplemental O2 was provided along with IV antibiotics. During hospital stay patient has received IV Levaquin and IV imipenem. He required nebulized bronchodilators and mucolytics as well. Due to significant bronchospasm and bronchorrhea he required IV steroids as well. Patient pulmonary status has slowly but progressively improved and stabilized. Due to evidence of fluid overload he required IV diuretic and responded to this very well. He was gradually weaned down to his standard 2 L nasal cannula supplemental O2. Urine testing showed [place] and patient received IV Diflucan. Outpatient regimen for his chronic medical conditions was continue and patient has remained hemodynamically stable. His activity was gradually advanced and by time of discharge she was able to ambulate with minimal exertional dyspnea. Upon initial presentation patient was found anemic with hemoglobin of 8.8 his blood count has drifted down and patient required transfusion with 2 units of pooled red blood cells. After blood transfusion his hemoglobin has oscillated around 10. Repeated x-ray of the chest showed improvement in aeration. It was felt that by November 10 patient has reached maximum benefit of inpatient therapy and in clinically stable and improved condition he is being. discharged Total Time: 45 min . Code: 32890 (>30min.) - Physical Exam Vital Signs: Last Vital Signs Temp 98 F 11/10/16 07:59 Pulse 70 11/10/16 08:00 Resp 18 11/10/16 08:00 BP 114/54 L 11/10/16 07:59 Pulse Ox 96 11/10/16 08:00 Oxygen Pulse Oxygen Saturation 96 O2 Device Nasal Cannula Oxygen Flow Rate 3 Fraction of Inspired Oxygen ( 40 FIO2) Constitutional: Alert, Confused, Distress, Restless, Other (Visibly short of breath with audible rhonchi some wheezes.) Oriented to: Time, Person, Place - HEENT Head: Normal Eye: Normal Oropharynx: Normal ENT EAC: Normal TMJ: Normal Nose: No Symptoms Reported - Respiratory/Cardiovascular Respiratory: Diminished, Rhonchi, Tachypnea, Wheezes Cardiovascular: Normal, Systolic murmur - GI Auscultation: Normal Palpation: Normal Tenderness: Non tender Rectal Exam: Deferred - Exam Deferred: Yes - Musculoskeletal Back: Normal Extremities: Normal, Pedal Edema - Integumentary Skin: Normal, Warm, Dry Lymphatics: Normal - Neurologic Memory Impaired: Normal Motor Function: Normal Cranial Nerve: Normal Cerebellar: Ataxia Mood Description: Normal, Anxious Thought: Coherent Perception: Normal - Other Exam Other Exam Findings: Allergies Vdbplzx-Aot-Fre Reductase Inhibitor Allergy (Intermediate, Verified 11/06/16 11: 27) Unknown/See Comments LEGS HURT piperacillin sodium [From Zosyn] Allergy (Verified 11/06/16 11:27) Hives* tazobactam sodium [From Zosyn] Allergy (Verified 11/06/16 11:27) Hives* Last Vital Signs Temp 98 F 11/10/16 07:59 Pulse 70 11/10/16 08:00 Resp 18 11/10/16 08:00 BP 114/54 L 11/10/16 07:59 Pulse Ox 96 11/10/16 08:00 Discharge Home Medication List Amiodarone [Cordarone, Pacerone] 200 mg PO DAILY 12/26/14 [History Confirmed ] Amlodipine [Norvasc] 10 mg PO DAILY 12/26/14 [History Confirmed 11/06/16] Finasteride [Proscar] 5 mg PO DAILY 12/26/14 [History Confirmed 11/06/16] Sennosides [Senokot] 8.6 mg PO DAILY 05/04/16 [History Confirmed 11/06/16] Ascorbic Acid [Vitamin C] 1,000 mg PO DAILY 08/15/16 [History Confirmed 11/06/16 ] Aspirin [Aspirin, Chewable] 81 mg PO DAILYWM #30 tablet 09/18/16 [Rx Confirmed 11/06/16] Probiotic Blend [Kellie Q] 1 tab PO BIDLS #60 tablet 10/16/16 [Rx Confirmed 11/06] Albuterol/Ipratropium Neb [Duoneb] 3 ml NEB Q6H #120 nebu 11/10/16 [Rx] Furosemide [Lasix] 40 mg PO BID #120 tab 11/10/16 [Rx] Guaifenesin [Mucinex] 1,200 mg PO BID #20 tbmp.12hr 11/10/16 [Rx] Levofloxacin [Levaquin] 750 mg PO DAILY #7 tablet 11/10/16 [Rx] Potassium Chloride 40 meq PO BID #120 tablet.er 11/10/16 [Rx] Prednisone 10 mg PO DAILY #20 tab.ds.pk 11/10/16 [Rx] New Discharge Medications (Rx) Albuterol/Ipratropium Neb [Duoneb] 3 ml NEB Q6H #120 nebu 11/10/16 [Rx] Furosemide [Lasix] 40 mg PO BID #120 tab 11/10/16 [Rx] Guaifenesin [Mucinex] 1,200 mg PO BID #20 tbmp.12hr 11/10/16 [Rx] Levofloxacin [Levaquin] 750 mg PO DAILY #7 tablet 11/10/16 [Rx] Potassium Chloride 40 meq PO BID #120 tablet.er 11/10/16 [Rx] Prednisone 10 mg PO DAILY #20 tab.ds.pk 11/10/16 [Rx] Home Medications Amiodarone [Cordarone, Pacerone] 200 mg PO DAILY 12/26/14 Amlodipine [Norvasc] 10 mg PO DAILY 12/26/14 Finasteride [Proscar] 5 mg PO DAILY 12/26/14 Sennosides [Senokot] 8.6 mg PO DAILY 05/04/16 Ascorbic Acid [Vitamin C] 1,000 mg PO DAILY 08/15/16 Aspirin [Aspirin, Chewable] 81 mg PO DAILYWM #30 tablet 09/18/16 Probiotic Blend [Kellie Q] 1 tab PO BIDLS #60 tablet 10/16/16 Albuterol/Ipratropium Neb [Duoneb] 3 ml NEB Q6H #120 nebu 11/10/16 Furosemide [Lasix] 40 mg PO BID #120 tab 11/10/16 Guaifenesin [Mucinex] 1,200 mg PO BID #20 tbmp.12hr 11/10/16 Levofloxacin [Levaquin] 750 mg PO DAILY #7 tablet 11/10/16 Potassium Chloride 40 meq PO BID #120 tablet.er 11/10/16 Prednisone 10 mg PO DAILY #20 tab.ds.pk 11/10/16 11/08/16 05:20 11/09/16 05:35 Abnormal Lab Results 11/09/16 11/09/16 11/09/16 10:40 16:30 23:31 POC Capillary Glucose 169 H 158 H 142 H 11/10/16 05:12 POC Capillary Glucose 149 H Microbiology 11/06/16 12:00 Sputum Gram Stain - Final 11/06/16 12:05 Urine - Clean Catch - Midstream Urine Culture - Final Yeast 11/06/16 15:35 Nares Nasal Screen MRSA (PCR)(CHLOÉ) - Final NEGATIVE for MRSA DNA Active Problems Acute respiratory failure (Acute) J96.00 Anemia (Acute) D64.9 Hemoglobin stable after blood transfusion. Bacterial pneumonia (Acute) J15.9 Continue IV antibiotics in the form of Levaquin and imipenem.. Await cultures Candiduria (Acute) B37.49 Patient will receive Diflucan x3 days HCAP (healthcare-associated pneumonia) (Acute) J18.9 Hypokalemia (Acute) E87.6 Replace and monitor UTI (urinary tract infection) (Acute) N39.0 continue abx , continue Diflucan BPH (benign prostatic hyperplasia) (Chronic) N40.0 Continue home meds. Continue Brown catheter Resolved Problems Dehydration (Resolved) E86.0 Continue gentle IV hydration Patient Name: JAMIE LARSON LOC: ICU : 1935 AGE: 81 Order Date:11/06/16 Date of Service: Report # [id number] Ord Physician: Keyon Watson MD Exam # [id number] Emergency Physician: Musa Garcia DO Exam(s): [id number] RAD/DG CHEST 2V CLINICAL DATA: Respiratory failure. EXAM: CHEST 2 VIEW COMPARISON: 11/06/2016. FINDINGS: Decreased airspace opacity in the left mid and lower lung zones and right lower lung zone. The cardiac silhouette remains borderline enlarged. The pulmonary vasculature is mildly prominent. Thoracic spine degenerative changes. Cervical spine fixation hardware. Stable left subclavian bipolar pacemaker leads. IMPRESSION: Improving alveolar edema and atelectasis in the lower lung zones bilaterally and left perihilar region. Underlying pneumonia cannot be excluded on the left. Electronically Signed By: Tyrone Rowland M.D. On: 11/07/2016 07:34
[2016-11-10] MEDS: Levofloxacin 750 mg/150 ml D5W 750 MG/150 ML RTU IV SCH (13:47)
== END 2016-11-10 14:40 | disposition home health service (06) | DRG 189 ==
LOC: ED 11:01 → EDINP 13:29 → ICU 13:51 → PCU 11-07 14:49
PROVIDERS: ADMIT Internal Medicine; ATTEND Internal Medicine
PROC: 039B3ZZ Drainage of Right Radial Artery, Percutaneous Approach (ICD-10-PCS; 2016-11-06)
PROC: 30233N1 Transfusion of Nonautologous Red Blood Cells into Peripheral Vein, Percutaneous Approach (ICD-10-PCS; principal; 2016-11-07)
DX: J96.01 Acute respiratory failure with hypoxia (principal); J15.9 Unspecified bacterial pneumonia; E86.0 Dehydration; I11.0 Hypertensive heart disease with heart failure; B37.49 Other urogenital candidiasis; I48.0 Paroxysmal atrial fibrillation; D64.9 Anemia, unspecified; I50.9 Heart failure, unspecified; N30.01 Acute cystitis with hematuria; Z79.82 Long term (current) use of aspirin; E78.00 Pure hypercholesterolemia, unspecified; Z95.0 Presence of cardiac pacemaker; Z79.899 Other long term (current) drug therapy; E87.6 Hypokalemia; N40.1 Benign prostatic hyperplasia with lower urinary tract symptoms
CPT/HCPCS: 36415; 36430; 36600; 71010; 71020; 80048; 80053; 81001; 82043; 82803; 82962; 83036; 83605; 83735; 83880; 84484; 85007; 85025; 85027; 85610; 85730; 86850; 86900; 86901; 86920; 87040; 87070; 87077; 87086; 87205; 87641; 93005; 94640; 96365; 96372; 96375; 97161; 99285; G0237; J0692; J0743; J1450; J1650; J1940; J1956; J2920; J2930; J3480; J3490; J7060; J7620; P9016